=== PATIENT | female | born 1980 | race Caucasian/White ===

== ENCOUNTER 2017-02-10 09:36 | Emergency (ER) | payer OTHER ==
[2017-02-10 10:50] LABS: ABSOLUTE BASOPHILS # (AUTO) 0.1 10^3/uL (0.0-0.2); ABSOLUTE EOSINOPHILS # (AUTO) 0.2 10^3/uL (0.0-0.6); ABSOLUTE LYMPHOCYTES (AUTO) 2.3 10^3/uL (0.5-4.7); ABSOLUTE MONOCYTES (AUTO) 0.7 10^3/uL (0.1-1.4); ABSOLUTE NEUT (AUTO) 9.1 10^3/uL (1.7-8.2); BASOPHILS % (AUTO) 0.4 % (0-2); EOSINOPHILS % (AUTO) 1.9 % (0-6); HEMATOCRIT 37.5 % (36.0-47.0); HEMOGLOBIN 12.5 g/dL (12.0-15.5); LYMPHOCYTES % (AUTO) 18.9 % (13-45); MEAN CORPUSCULAR HEMOGLOBIN 28.7 pg (27.0-33.4); MEAN CORPUSCULAR HGB CONC 33.3 g/dL (32.0-36.0); MEAN CORPUSCULAR VOLUME 86 fl (80-97); MONOCYTES % (AUTO) 5.6 % (3-13); RED BLOOD COUNT 4.35 10^6/uL (3.72-5.28); RED CELL DISTRIBUTION WIDTH 14.9 % (11.5-14.0); SEGMENTED NEUTROPHILS % (AUTO) 73.2 % (42-78); WHITE BLOOD COUNT 12.4 10^3/uL (4.0-10.5)
[2017-02-10 11:06] LABS: APPEARANCE,URINE SLIGHTLY-CLOUDY; BILIRUBIN,URINE NEGATIVE (NEGATIVE); GLUCOSE, URINE 50 mg/dL (NEGATIVE); KETONES,URINE NEGATIVE (NEGATIVE); LEUKOCYTE ESTERASE,URINE NEGATIVE (NEGATIVE); NITRITE,URINE NEGATIVE (NEGATIVE); PROTEIN,URINE 30 mg/dL (NEGATIVE); URINE SPECIFIC GRAVITY 1.026; UROBILINOGEN,URINE NEGATIVE mg/dL (<2.0)
[2017-02-10 11:09] LABS: ALANINE AMINOTRANSFERASE 22 U/L (9-52); ALBUMIN 3.5 g/dL (3.5-5.0); ALKALINE PHOSPHATASE 90 U/L (38-126); ANION GAP 10 (5-19); ASPARTATE AMINO TRANSFERASE 20 U/L (14-36); BILIRUBIN,DIRECT 0.2 mg/dL (0.0-0.4); BILIRUBIN,TOTAL 0.9 mg/dL (0.2-1.3); BLOOD UREA NITROGEN 8 mg/dL (7-20); CALCIUM 8.9 mg/dL (8.4-10.2); CARBON DIOXIDE 21 mmol/L (22-30); CHLORIDE 103 mmol/L (98-107); CREATININE RESULT 0.54 mg/dL (0.52-1.25); GLUCOSE 87 mg/dL (75-110); LIPASE 120.2 U/L (23-300); POTASSIUM 4.3 mmol/L (3.6-5.0); SODIUM 133.7 mmol/L (137-145); TOTAL PROTEIN 6.5 g/dL (6.3-8.2)
[2017-02-10] MEDS ORDERED: METOCLOPRAMIDE HCL 10 MG TABLET PO ONE (12:02)
--- NOTE | 2017-02-10 12:14 | ER Document Report ---
ED General - General Chief Complaint: Dizziness Stated Complaint: NAUSEA/DIZZINESS Time Seen by Provider: 02/10/17 09:51 Mode of Arrival: Medic Information source: Patient Notes: 36-year-old female 34 weeks presents with complaints of nausea vomiting dizziness. Patient notes that she has had these symptoms for approximately a week and half, was seen by her [employer] but they would not give her any nausea medication. Patient notes she vomits approximately 2-3 times a day. Denies any fevers or chills notes she did vomit one time today. TRAVEL OUTSIDE OF THE [place] IN LAST 30 DAYS: No - HPI Onset: Last week Onset/Duration: Intermittent Quality of pain: No pain Severity: Mild Pain Level: Denies Associated symptoms: Nausea, Vomiting Exacerbated by: Denies Relieved by: Denies Similar symptoms previously: Yes Recently seen / treated by doctor: Yes - Related Data Allergies/Adverse Reactions: Penicillins Allergy (Severe, Verified 02/10/17 09:45) Anaphylaxis Home Medications: Current Home Medications Aspirin [Aspirin 81 mg Chewable Tablet] 81 mg PO DAILY 02/10/17 [History] Docusate Sodium [Colace 100 mg Capsule] 100 mg PO DAILY 02/10/17 [History] Enoxaparin Sodium [Lovenox] 30 mg SQ DAILY 02/10/17 [History] Escitalopram Oxalate [Lexapro 10 mg Tablet] 20 mg PO DAILY 02/10/17 [History] Past Medical History - Social History Smoking Status: Never Smoker Cigarette use (# per day): No Chew tobacco use (# tins/day): No Smoking Education Provided: No Frequency of alcohol use: None Drug Abuse: None Family History: Reviewed & Not Pertinent - No personal or family history of DVT , PE or hypercoagulable states., CAD Patient has suicidal ideation: No Patient has homicidal ideation: No - Past Medical History Cardiac Medical History: Reports: Hx Pulmonary Embolism Neurological Medical History: Reports: Hx Migraine Renal/ Medical History: Denies: Hx Peritoneal Dialysis GI Medical History: Reports: Hx Gastroesophageal Reflux Disease Psychiatric Medical History: Reports: Hx Anxiety, Hx Depression Past Surgical History: Reports: Hx Section, Hx Orthopedic Surgery - back, right wrist, Hx Tonsillectomy - Immunizations Hx Diphtheria, Pertussis, Tetanus Vaccination: Yes Review of Systems - Review of Systems Notes: REVIEW OF SYSTEMS: CONSTITUTIONAL : Denies fever, chills, or sweats. Denies recent illness. EENT: Denies eye, ear, throat, or mouth pain or symptoms. Denies nasal or sinus congestion or discharge. Denies throat, tongue, or mouth swelling or difficulty swallowing. CARDIOVASCULAR: Denies chest pain. Denies palpitations or racing or irregular heart beat. Denies ankle edema. RESPIRATORY: Denies cough, cold, or chest congestion. Denies shortness of breath, difficulty breathing, or wheezing. GASTROINTESTINAL: D admits to nausea vomiting GENITOURINARY: Denies difficulty urinating, painful urination, burning, frequency, blood in urine, or discharge. FEMALE GENITOURINARY: Denies vaginal bleeding, heavy or abnormal periods, irregular periods. Denies vaginal discharge or odor. MUSCULOSKELETAL: Denies back or neck pain or stiffness. Denies joint pain or swelling. SKIN: Denies rash, lesions or sores. HEMATOLOGIC : Denies easy bruising or bleeding. LYMPHATIC: Denies swollen, enlarged glands. NEUROLOGICAL: Admits to dizziness PSYCHIATRIC: Denies anxiety or stress. Denies depression, suicidal ideation, or homicidal ideation. ALL OTHER SYSTEMS REVIEWED AND NEGATIVE. PHYSICAL EXAMINATION: GENERAL: Well-appearing, well-nourished and in no acute distress. HEAD: Atraumatic, normocephalic. EYES: Pupils equal round and reactive to light, extraocular movements intact, conjunctiva are normal. ENT: Nares patent, oropharynx clear without exudates. Moist mucous membranes. NECK: Normal range of motion, supple without lymphadenopathy LUNGS: Breath sounds clear to auscultation bilaterally and equal. No wheezes rales or rhonchi. HEART: Regular rate and rhythm without murmurs ABDOMEN: Gravid abdomen Female : deferred Musculoskeletal: Normal range of motion, no pitting or edema. No cyanosis. NEUROLOGICAL: Cranial nerves grossly intact. Normal speech, normal gait. Normal sensory, motor exams PSYCH: Normal mood, normal affect. SKIN: Warm, Dry, normal turgor, no rashes or lesions noted. Dictation was performed using [employer] voice recognition software Physical Exam - Vital signs Vitals: Temp Pulse Resp BP Pulse Ox 98 F 99 16 122/91 H 99 02/10/17 09:37 02/10/17 09:37 02/10/17 09:37 02/10/17 09:37 02/10/17 09:37 Course - Re-evaluation Re-evalutation: 02/10/17 12:11 Patient is noted to have mild hyponatremia otherwise she looks extremely well is in no distress, she will be given Reglan and is otherwise stable for discharge. Mild white count elevation is consistent with the . She is not having any abdominal pain has not had any vaginal bleeding or any other life-threatening concerns After performing a Medical Screening Examination, I estimate there is LOW risk for ACUTE APPENDICITIS, BOWEL OBSTRUCTION, ACUTE CHOLECYSTITIS, PERFORATED DIVERTICULITIS, INCARCERATED HERNIA, PANCREATITIS, PELVIC INFLAMMATORY DISEASE, PERFORATED ULCER, or TUBO-OVARIAN ABSCESS, thus I consider the discharge disposition reasonable. Also, there is no evidence or peritonitis, sepsis, or toxicity. I have reevaluated this patient multiple times and no significant life threatening changes are noted. The patient and I have discussed the diagnosis and risks, and we agree with discharging home with close follow-up with the understanding that symptoms and presentations can change. We also discussed returning to the Emergency Department immediately if new or worsening symptoms occur. We have discussed the symptoms which are most concerning (e.g., bloody stool, fever, changing or worsening pain, vomiting) that necessitate immediate return. - Vital Signs Vital signs: Temp Pulse Resp BP Pulse Ox 98 F 99 16 122/91 H 99 02/10/17 09:37 02/10/17 09:37 02/10/17 09:37 02/10/17 09:37 02/10/17 09:37 - Laboratory Result Diagrams: 02/10/17 10:40 02/10/17 10:40 Laboratory results interpreted by me: 02/10/17 02/10/17 02/10/17 10:40 10:40 10:40 WBC 12.4 H RDW 14.9 H Absolute Neutrophils 9.1 H Sodium 133.7 L Carbon Dioxide 21 L Urine Protein 30 H Urine Glucose (UA) 50 H Urine HCG, Qual POSITIVE H Discharge - Discharge Clinical Impression: Nausea/vomiting in , Dizziness Condition: Stable Disposition: HOME, SELF-CARE Instructions: Dizziness ([facility]) Prescriptions: Metoclopramide HCl [Reglan 10 mg Tablet] 1 - 2 tab PO Q6 #25 tablet Referrals: GOYO HYATT FNP [Primary Care Provider] - Follow up tomorrow
[2017-02-10 12:35] VITALS: BP 131/79
== END 2017-02-10 12:30 | disposition home or self-care (01) ==
LOC: ER 09:36
DX: O21.1 Hyperemesis gravidarum with metabolic disturbance (principal); O26.893 Other specified pregnancy related conditions, third trimester; R42 Dizziness and giddiness; Z3A.34 34 weeks gestation of pregnancy; Z37.0 Single live birth; Z88.0 Allergy status to penicillin
CPT/HCPCS: 36415; 80053; 81001; 81025; 83690; 84702; 85025; 99284

== ENCOUNTER 2017-03-06 09:15 | Emergency (ER) | payer OTHER ==
--- NOTE | 2017-03-06 09:37 | ER Document Report ---
ED General - General Chief Complaint: Leg Pain Stated Complaint: LEG PAIN Time Seen by Provider: 03/06/17 09:31 Mode of Arrival: Wheelchair Information source: Patient Notes: 36 yr old female who is 37 weeks presents with complaints of right lower extremity edema pain of about 1 week duration. Pt denies any chest pain sob, pt denies any abd pain or vaginal bleeding. Pt has had a hx of PE, is currently on lovenox 40 mb bid since started TRAVEL OUTSIDE OF THE [place] IN LAST 30 DAYS: No - HPI Onset: Last week Onset/Duration: Persistent Quality of pain: Cramping Severity: Mild Pain Level: 1 Associated symptoms: Leg swelling Exacerbated by: Denies Relieved by: Denies Similar symptoms previously: No Recently seen / treated by doctor: Yes - Related Data Allergies/Adverse Reactions: Penicillins Allergy (Severe, Verified 03/06/17 09:28) Anaphylaxis Home Medications: Current Home Medications Pnv No.122/Iron/Folic Acid [ Multi Tablet] 1 tab PO DAILY 03/06/17 [ History] Past Medical History - Social History Smoking Status: Never Smoker Cigarette use (# per day): No Chew tobacco use (# tins/day): No Smoking Education Provided: No Frequency of alcohol use: None Drug Abuse: None Family History: Reviewed & Not Pertinent - No personal or family history of DVT , PE or hypercoagulable states., CAD Patient has suicidal ideation: No Patient has homicidal ideation: No - Past Medical History Cardiac Medical History: Reports: Hx Pulmonary Embolism Neurological Medical History: Reports: Hx Migraine Renal/ Medical History: Denies: Hx Peritoneal Dialysis GI Medical History: Reports: Hx Gastroesophageal Reflux Disease Psychiatric Medical History: Reports: Hx Anxiety, Hx Depression Past Surgical History: Reports: Hx Section, Hx Orthopedic Surgery - back, right wrist, Hx Tonsillectomy - Immunizations Hx Diphtheria, Pertussis, Tetanus Vaccination: Yes Review of Systems - Review of Systems Notes: REVIEW OF SYSTEMS: CONSTITUTIONAL : Denies fever, chills, or sweats. Denies recent illness. EENT: Denies eye, ear, throat, or mouth pain or symptoms. Denies nasal or sinus congestion or discharge. Denies throat, tongue, or mouth swelling or difficulty swallowing. CARDIOVASCULAR: Denies chest pain. Denies palpitations or racing or irregular heart beat. Denies ankle edema. RESPIRATORY: Denies cough, cold, or chest congestion. Denies shortness of breath, difficulty breathing, or wheezing. GASTROINTESTINAL: Denies abdominal pain or distention. Denies nausea, vomiting , or diarrhea. Denies blood in vomitus, stools, or per rectum. Denies black, tarry stools. Denies constipation. GENITOURINARY: Denies difficulty urinating, painful urination, burning, frequency, blood in urine, or discharge. FEMALE GENITOURINARY: Denies vaginal bleeding, heavy or abnormal periods, irregular periods. Denies vaginal discharge or odor. MUSCULOSKELETAL: right lower extremity swelling SKIN: Denies rash, lesions or sores. HEMATOLOGIC : Denies easy bruising or bleeding. LYMPHATIC: Denies swollen, enlarged glands. NEUROLOGICAL: Denies confusion or altered mental status. Denies passing out or loss of consciousness. Denies dizziness or lightheadedness. Denies headache. Denies weakness or paralysis or loss of use of either side. Denies problems with gait or speech. Denies sensory loss, numbness, or tingling. Denies seizures. PSYCHIATRIC: Denies anxiety or stress. Denies depression, suicidal ideation, or homicidal ideation. ALL OTHER SYSTEMS REVIEWED AND NEGATIVE. PHYSICAL EXAMINATION: GENERAL: Well-appearing, well-nourished and in no acute distress. HEAD: Atraumatic, normocephalic. EYES: Pupils equal round and reactive to light, extraocular movements intact, conjunctiva are normal. ENT: Nares patent, oropharynx clear without exudates. Moist mucous membranes. NECK: Normal range of motion, supple without lymphadenopathy LUNGS: Breath sounds clear to auscultation bilaterally and equal. No wheezes rales or rhonchi. HEART: Regular rate and rhythm without murmurs ABDOMEN: Soft, nontender, nondistended abdomen. No guarding, no rebound. No masses appreciated. Female : deferred Musculoskeletal: mild tenderness on the RLE NEUROLOGICAL: Cranial nerves grossly intact. Normal speech, normal gait. Normal sensory, motor exams PSYCH: Normal mood, normal affect. SKIN: Warm, Dry, normal turgor, no rashes or lesions noted. Dictation was performed using [employer] voice recognition software Physical Exam - Vital signs Vitals: Temp Pulse Resp Pulse Ox 98.5 F 103 H 20 98 03/06/17 09:26 03/06/17 09:26 03/06/17 09:26 03/06/17 09:26 Course - Re-evaluation Re-evalutation: 03/06/17 09:40 U/s pending, no known cause of previous PE. 03/06/17 10:29 Ultrasound is negative patient's otherwise stable for discharge will have her follow-up with her [employer] for further care. Patient has been instructed to return immediately if there is any worsening symptoms shortness of breath chest pain or any other concerns After performing a Medical Screening Examination, I estimate there is LOW risk for RUPTURED ESOPHAGUS, PNEUMOTHORAX, PULMONARY EMBOLISM, ACUTE CORONARY SYNDROME, OR THORACIC AORTIC DISSECTION, thus I consider the discharge disposition reasonable. I have reevaluated this patient multiple times and no significant life threatening changes are noted. The patient and I have discussed the diagnosis and risks, and we agree with discharging home with close follow-up. We also discussed returning to the Emergency Department immediately if new or worsening symptoms occur. We have discussed the symptoms which are most concerning (e.g., bloody sputum, worsening pain or shortness of breath) that necessitate immediate return. - Vital Signs Vital signs: Temp Pulse Resp BP Pulse Ox 98.5 F 103 H 20 98 03/06/17 09:26 03/06/17 09:26 03/06/17 09:26 03/06/17 09:26 - Diagnostic Test Radiology reviewed: Image reviewed, Reports reviewed - no acute abormality Discharge - Discharge Clinical Impression: Leg edema, right Leg pain Qualifiers: Laterality: right Qualified Code(s): M79.604 - Pain in right leg Condition: Stable Disposition: HOME, SELF-CARE Instructions: Possible Evolving Leg DVT ([facility]) Additional Instructions: Please follow-up with your primary care physician for reevaluation or return immediately if there are any other concerns
[2017-03-06 10:47] VITALS: BP 135/84
--- NOTE | 2017-03-06 11:41 | RADIOLOGY REPORT (SQ) ---
EXAM DESCRIPTION: VENOUS UNILATERAL LOWER/ right leg COMPLETED DATE/TIME: 03/06/2017 11:15 am REASON FOR STUDY: RLE pain COMPARISON: 06/25/2016 TECHNIQUE: Dynamic and static rivera scale and color images acquired of the right leg venous system. S elected spectral images acquired with additional compression and augmentation maneuvers. The contrala teral common femoral vein and saphenofemoral junction were also imaged. Images stored on PACS. LIMITATIONS: None. FINDINGS: COMMON FEMORAL: Normal phasicity, compression and augmentation. No visualized echogenic ma terial on rivera scale. No defects on color images. FEMORAL: Normal compression and augmentation. No visualized echogenic material on rivera scale. No defe cts on color images. POPLITEAL: Normal compression, augmentation. No visualized echogenic material on rivera scale. No defec ts on color images. CALF VESSELS: Normal compression, augmentation. No visualized echogenic material on rivera scale. No de fects on color images. GSV and SSV: Normal compression, augmentation. No visualized echogenic material on rivera scale. No def ects on color images. ANY DEEP VENOUS INSUFFICIENCY: Not evaluated. ANY EVIDENCE OF POPLITEAL CYST: No. OTHER: No other significant finding. CONTRALATERAL COMMON FEMORAL VEIN AND SAPHENOFEMORAL JUNCTION: Normal phasicity, compression and augmentation. No visualized echogenic material on rivera scale. No de fects on color images. IMPRESSION: No ultrasound evidence for DVT of the right leg. COMMENT: Report called to Dr Giordano at the time study TECHNICAL DOCUMENTATION: JOB ID: [id number] [employer]- All Rights Reserved
== END 2017-03-06 10:47 | disposition home or self-care (01) ==
LOC: ER 09:15
DX: O12.03 Gestational edema, third trimester (principal); M79.604 Pain in right leg; Z3A.37 37 weeks gestation of pregnancy; Z88.0 Allergy status to penicillin; Z86.711 Personal history of pulmonary embolism; Z79.02 Long term (current) use of antithrombotics/antiplatelets
CPT/HCPCS: 93971; 99284

== ENCOUNTER 2017-09-12 16:45 | Emergency (ER) | payer MEDICAID, OTHER ==
[2017-09-12] MEDS ORDERED: ONDANSETRON HCL INJ/PF 4 MG/2 ML SDV IV ONE (17:55)
--- NOTE | 2017-09-12 17:58 | ER Document Report ---
ED Medical Screen (RME) - General Chief Complaint: Nausea/Vomiting Stated Complaint: VOMITING Time Seen by Provider: 09/12/17 17:51 Notes: 36 yo female c/o n/v since 100 this morning. + lower abd pain. denies urinary symptoms, denies vaginal symptoms, TRAVEL OUTSIDE OF THE [place] IN LAST 30 DAYS: No - Related Data Allergies/Adverse Reactions: Penicillins Allergy (Severe, Verified 09/12/17 16:49) Anaphylaxis Past Medical History - Social History Frequency of alcohol use: None Drug Abuse: None - Past Medical History Cardiac Medical History: Reports: Hx Pulmonary Embolism Neurological Medical History: Reports: Hx Migraine Renal/ Medical History: Denies: Hx Peritoneal Dialysis GI Medical History: Reports: Hx Gastroesophageal Reflux Disease Psychiatric Medical History: Reports: Hx Anxiety, Hx Depression Past Surgical History: Reports: Hx Section, Hx Orthopedic Surgery - back, right wrist, Hx Tonsillectomy - Immunizations Hx Diphtheria, Pertussis, Tetanus Vaccination: Yes Physical Exam - Vital signs Vitals: Temp Pulse Resp BP Pulse Ox 98.2 F 115 H 20 129/86 H 98 09/12/17 16:59 09/12/17 16:59 09/12/17 16:59 09/12/17 16:59 09/12/17 16:59 Course - Vital Signs Vital signs: Temp Pulse Resp BP Pulse Ox 98.2 F 115 H 20 129/86 H 98 09/12/17 16:59 09/12/17 16:59 09/12/17 16:59 09/12/17 16:59 09/12/17 16:59
[2017-09-12] MEDS: NORMAL SALINE 1000 ML 1,000 ML IV PRN ×2 (19:00→20:36)
[2017-09-12 19:08] LABS: HEMATOCRIT 39.9 % (36.0-47.0); MEAN CORPUSCULAR HEMOGLOBIN 25.5 pg (27.0-33.4); MEAN CORPUSCULAR HGB CONC 32.6 g/dL (32.0-36.0); MEAN CORPUSCULAR VOLUME 78 fl (80-97); PLATELET COUNT 263 10^3/uL (150-450); RED CELL DISTRIBUTION WIDTH 14.7 % (11.5-14.0); WHITE BLOOD COUNT 11.1 10^3/uL (4.0-10.5)
[2017-09-12 19:14] LABS: ALANINE AMINOTRANSFERASE 24 U/L (9-52); ALBUMIN 4.6 g/dL (3.5-5.0); ALKALINE PHOSPHATASE 84 U/L (38-126); ANION GAP 15 (5-19); ASPARTATE AMINO TRANSFERASE 20 U/L (14-36); BILIRUBIN,DIRECT 0.1 mg/dL (0.0-0.4); BILIRUBIN,TOTAL 1.8 mg/dL (0.2-1.3); BLOOD UREA NITROGEN 19 mg/dL (7-20); CALCIUM 9.2 mg/dL (8.4-10.2); CARBON DIOXIDE 22 mmol/L (22-30); CHLORIDE 103 mmol/L (98-107); GLUCOSE 146 mg/dL (75-110); LIPASE 83.5 U/L (23-300); POTASSIUM 4.2 mmol/L (3.6-5.0); SODIUM 139.9 mmol/L (137-145); TOTAL PROTEIN 7.2 g/dL (6.3-8.2)
[2017-09-12 19:39] LABS: ABSOLUTE LYMPHOCYTES# (MANUAL) 0.6 10^3/uL (0.5-4.7); ABSOLUTE MONOCYTES # (MANUAL) 0.1 10^3/uL (0.1-1.4); ABSOLUTE NEUTROPHILS# (MANUAL) 10.4 10^3/uL (1.7-8.2); BAND NEUTROPHILS % (MANUAL) 3 % (3-5); BASOPHILS % (MANUAL) 0 % (0-2); EOSINOPHILS % (MANUAL) 0 % (0-6); LYMPHOCYTES % (MANUAL) 5 % (13-45); MONOCYTES % (MANUAL) 1 % (3-13); SEGMENTED NEUTROPHILS % (MAN) 91 % (42-78); TOTAL CELLS COUNTED 100
[2017-09-12 19:40] LABS: ANISOCYTOSIS SLIGHT; PLATELET COMMENT ADEQUATE
--- NOTE | 2017-09-12 19:43 | ER Document Report ---
ED General - General Mode of Arrival: Ambulatory Information source: Patient TRAVEL OUTSIDE OF THE [place] IN LAST 30 DAYS: No <CESAR SMALL - Last Filed: 09/13/17 00:36> <AVELINACAROLYN Coffey - Last Filed: 10/05/17 17:06> - General Chief Complaint: Nausea/Vomiting Stated Complaint: VOMITING Time Seen by Provider: 09/12/17 17:51 Notes: Patient is a 36 year old female presenting to the emergency department complaining of sudden onset of nausea and vomiting onset today around 1200. Patient states she was at work when she began to feel nauseous which progressively worsened. Patient states she has had 12 episodes of vomiting today. Patient also complains decreased urination and diffuse abdominal pain. At bedside patient states she feels better after receiving Zofran. Patient denies any cough, congestion, fever, illness, chest pain, shortness of breath, blurry vision, or sick contacts. (CESAR SMALL) - Related Data Allergies/Adverse Reactions: Penicillins Allergy (Severe, Verified 09/12/17 16:49) Anaphylaxis Past Medical History - General Information source: Patient - Social History Smoking Status: Never Smoker Frequency of alcohol use: None Drug Abuse: None Family History: Reviewed & Not Pertinent - No personal or family history of DVT , PE or hypercoagulable states., CAD Patient has suicidal ideation: No Patient has homicidal ideation: No - Past Medical History Cardiac Medical History: Reports: Hx Pulmonary Embolism Neurological Medical History: Reports: Hx Migraine GI Medical History: Reports: Hx Gastroesophageal Reflux Disease Psychiatric Medical History: Reports: Hx Anxiety, Hx Depression Past Surgical History: Reports: Hx Section, Hx Orthopedic Surgery - back, right wrist, Hx Tonsillectomy - Immunizations Hx Diphtheria, Pertussis, Tetanus Vaccination: Yes <CESAR SMALL - Last Filed: 09/13/17 00:36> Review of Systems - Review of Systems Constitutional: No symptoms reported EENT: No symptoms reported Cardiovascular: No symptoms reported Respiratory: No symptoms reported Gastrointestinal: See HPI, Abdominal pain, Nausea, Vomiting Genitourinary: See HPI Female Genitourinary: No symptoms reported Musculoskeletal: No symptoms reported Skin: No symptoms reported Hematologic/Lymphatic: No symptoms reported Neurological/Psychological: No symptoms reported -: Yes All other systems reviewed and negative <CESAR SMALL - Last Filed: 09/13/17 00:36> Physical Exam <CESAR SMALL - Last Filed: 09/13/17 00:36> <CAROLYN QUAN - Last Filed: 10/05/17 17:06> - Vital signs Vitals: Temp Pulse Resp BP Pulse Ox 98.2 F 115 H 20 129/86 H 98 09/12/17 16:59 09/12/17 16:59 09/12/17 16:59 09/12/17 16:59 09/12/17 16:59 - Notes Notes: GENERAL: Alert, interacts well. No acute distress. HEAD: Normocephalic, atraumatic. EYES: Pupils equal, round, and reactive to light. Extraocular movements intact. ENT: Oral mucosa moist, tongue midline. NECK: Full range of motion. Supple. Trachea midline. LUNGS: Clear to auscultation bilaterally, no wheezes, rales, or rhonchi. No respiratory distress. HEART: Regular rate and rhythm. No murmurs, gallops, or rubs. ABDOMEN: Soft, Diffuse abdominal tenderness to palpation, worse in LLQ none in RUQ. Non-distended. Bowel sounds present in all 4 quadrants. EXTREMITIES: Moves all 4 extremities spontaneously. NEUROLOGICAL: Alert and oriented x3. Normal speech. PSYCH: Normal affect, normal mood. SKIN: Warm, dry, normal turgor. No rashes or lesions noted. (CESAR SMALL) Course - Laboratory Result Diagrams: 09/12/17 18:52 09/12/17 18:52 <CESAR SMALL - Last Filed: 09/13/17 00:36> - Laboratory Result Diagrams: 09/12/17 18:52 09/12/17 18:52 <CAROLYN QUAN - Last Filed: 10/05/17 17:06> - Re-evaluation Re-evalutation: 09/12/17 20:29 Patient symptoms improved with Zofran patient has not had any vomitus while in the emergency department. Patient be discharged with Zofran return precautions 09/12/17 21:09 Patient's labs within normal limits are nonsignificant discharged at this time with Zofran (CAROLYN QUAN) - Vital Signs Vital signs: Temp Pulse Resp BP Pulse Ox 98.1 F 99 20 127/75 H 97 09/12/17 21:31 09/12/17 21:31 09/12/17 21:31 09/12/17 21:31 09/12/17 21:31 - Laboratory Laboratory results interpreted by me: 09/12/17 09/12/17 09/12/17 18:52 18:52 20:15 WBC 11.1 H MCV 78 L MCH 25.5 L RDW 14.7 H Seg Neuts % (Manual) 91 H Lymphocytes % (Manual) 5 L Monocytes % (Manual) 1 L Abs Neuts (Manual) 10.4 H Glucose 146 H Total Bilirubin 1.8 H Urine Protein 30 H Urine Glucose (UA) 50 H Urine Ketones 20 H Discharge <CESAR SMALL - Last Filed: 09/13/17 00:36> <CAROLYN QUAN - Last Filed: 10/05/17 17:06> - Discharge Clinical Impression: Nausea and vomiting Condition: Stable Disposition: HOME, SELF-CARE Additional Instructions: Please return to the emergency department if your to have new or worsening symptoms. Prescriptions: Ondansetron [Zofran Odt 4 mg Tablet (6 Tab/ER Disp)] 4 tab PO Q4HP PRN #6 dspk PRN Reason: Forms: Return to Work Scribe Attestation: 10/05/17 17:06 I personally performed the services described documentation, reviewed and edited the documentation which was dictated to describe my presence, and it accurately records my words and actions. (CAROLYN QUAN) Scribe Documentation - Scribe Written by Coletteibe:: Marielos Hernandez, 09/12/2017 19:43 acting as scribe for :: Avelina <CESAR SMALL - Last Filed: 09/13/17 00:36>
[2017-09-12] MEDS ORDERED: NORMAL SALINE 1000 ML 1,000 ML IV ONE (20:29)
[2017-09-12 20:36] LABS: APPEARANCE,URINE SLIGHTLY-CLOUDY; BILIRUBIN,URINE NEGATIVE (NEGATIVE); COLOR,URINE YELLOW; GLUCOSE, URINE 50 mg/dL (NEGATIVE); KETONES,URINE 20 mg/dL (NEGATIVE); LEUKOCYTE ESTERASE,URINE NEGATIVE (NEGATIVE); NITRITE,URINE NEGATIVE (NEGATIVE); PROTEIN,URINE 30 mg/dL (NEGATIVE); URINE SPECIFIC GRAVITY 1.031; UROBILINOGEN,URINE NEGATIVE mg/dL (<2.0)
[2017-09-12] MEDS ORDERED: ONDANSETRON 4 MG TAB.RAPDIS PO ONE (21:12)
[2017-09-12] MEDS ORDERED: ONDANSETRON ODT 4 MG TAB (6 TAB/ER DISP) PO PRN (21:36)
[2017-09-12 21:58] VITALS: BP 127/75
== END 2017-09-12 21:35 | disposition home or self-care (01) ==
LOC: ER 16:45
DX: R11.2 Nausea with vomiting, unspecified (principal); R10.84 Generalized abdominal pain; R39.9 Unspecified symptoms and signs involving the genitourinary system; Z87.892 Personal history of anaphylaxis; Z88.0 Allergy status to penicillin; Z87.19 Personal history of other diseases of the digestive system
CPT/HCPCS: 99284; 96361; 96374; 36415; 83690; 84703; 85025; 80053; 81001; S0119; J2405; J7030

== ENCOUNTER 2018-10-01 08:20 | Emergency (ER) | payer OTHER ==
[2018-10-01 08:25] VITALS: BP 148/89
[2018-10-01] MEDS ORDERED: KETOROLAC TROMETHAMINE 60 MG/2 ML SDV IM ONE (08:48)
[2018-10-01] MEDS ORDERED: DIPHENHYDRAMINE HCL 25 MG CAPSULE PO ONE (08:48)
[2018-10-01] MEDS ORDERED: METOCLOPRAMIDE HCL 10 MG TABLET PO ONE (08:48)
--- NOTE | 2018-10-01 08:56 | ER Document Report ---
ED Medical Screen (RME) - General Chief Complaint: Headache Stated Complaint: HEADACHE Time Seen by Provider: 10/01/18 08:41 Primary Care Provider: AKASH POOL DO [Primary Care Provider] - Follow up as needed Mode of Arrival: Ambulatory Information source: Patient Notes: Patient presents emergency department with complaints of the worst migraine she has had in the past 10 years. Reports history of migraines since she was a child. Reports this 1 started on Sunday feels like her typical migraine except it has not gone away and not dulled in pain. She has taken 2 of her rizatriptan- medication yesterday for migraine. Reports she has gone to sleep in a dark room and the pain has not dulled. She reports facial pain that radiates to the top of her head to the back of her skull, pain behind her eyes, also reports her neck is a little sore. Denies fever vomiting diarrhea. Complains of some nausea. Denies vision issues. Reports sensitive to light smell and noise. Denies trauma. Patient is talking in full comprehensive sentences. Alert and oriented. I have greeted and performed a rapid initial assessment of this patient. A comprehensive ED assessment and evaluation of the patient, analysis of test results and completion of the medical decision making process will be conducted by additional ED providers. TRAVEL OUTSIDE OF THE [place] IN LAST 30 DAYS: No - Related Data Allergies/Adverse Reactions: Penicillins Allergy (Severe, Verified 10/01/18 08:21) Anaphylaxis Past Medical History - Past Medical History Cardiac Medical History: Reports: Hx Pulmonary Embolism Neurological Medical History: Reports: Hx Migraine Renal/ Medical History: Denies: Hx Peritoneal Dialysis GI Medical History: Reports: Hx Gastroesophageal Reflux Disease Psychiatric Medical History: Reports: Hx Anxiety, Hx Depression Past Surgical History: Reports: Hx Section, Hx Myringotomy, Hx Orthop edic Surgery - back, right wrist, Hx Tonsillectomy - Immunizations Immunizations up to date: Yes Hx Diphtheria, Pertussis, Tetanus Vaccination: Yes Physical Exam - Vital signs Vitals: Temp Pulse Resp BP Pulse Ox 99.2 F 80 16 148/89 H 98 10/01/18 08:24 10/01/18 08:24 10/01/18 08:24 10/01/18 08:24 10/01/18 08:24 Course - Vital Signs Vital signs: Temp Pulse Resp BP Pulse Ox 99.2 F 80 16 148/89 H 98 10/01/18 08:24 10/01/18 08:24 10/01/18 08:24 10/01/18 08:24 10/01/18 08:24 Doctor's Discharge - Discharge Referrals: AKASH POOL DO [Primary Care Provider] - Follow up as needed
[2018-10-01] MEDS ORDERED: PROCHLORPERAZINE EDISYLATE INJ 10 MG/2 ML VIAL IV ONE (09:07)
[2018-10-01] MEDS ORDERED: DIPHENHYDRAMINE HCL 50 MG/ML VIAL IV ONE (09:07)
[2018-10-01] MEDS ORDERED: KETOROLAC TROMETHAMINE INJ/PF 30 MG/1 ML SDV IV ONE (09:07)
[2018-10-01] MEDS ORDERED: NORMAL SALINE 1000 ML 1,000 ML IV ONE (09:07)
--- NOTE | 2018-10-01 15:13 | ER Document Report ---
Entered by CESAR SMALL SCRIBE 10/01/18 0915 Acting as scribe for:JAMES PERALES MD ED General - General Chief Complaint: Headache Stated Complaint: HEADACHE Time Seen by Provider: 10/01/18 08:41 Primary Care Provider: AKASH POOL DO [NO LOCAL MD] - Follow up as needed Mode of Arrival: Ambulatory Information source: Patient Notes: Patient is a 37 year old female presenting to the emergency department complaining of a headache onset yesterday. Patient states she has a history of migraines and states her current headache is the worst one she has had in 10 years. She describes the headache as throbbing, behind her eyes that is worse on the left side. She states the headache feels similar and is in the same location but different due to severity and lasting longer than normal. She states she took 2 rizatriptan yesterday with no relief. Patient also complains of associated photophobia and nausea. She denies vomiting, fevers or diarrhea. TRAVEL OUTSIDE OF THE [place] IN LAST 30 DAYS: No - Related Data Allergies/Adverse Reactions: Penicillins Allergy (Severe, Verified 10/01/18 08:21) Anaphylaxis Past Medical History - General Information source: Patient - Social History Smoking Status: Never Smoker Frequency of alcohol use: None Drug Abuse: None Family History: Reviewed & Not Pertinent - No personal or family history of DVT, PE or hypercoagulable states., CAD Patient has suicidal ideation: No Patient has homicidal ideation: No - Past Medical History Cardiac Medical History: Reports: Hx Pulmonary Embolism - Multiple 2014 Neurological Medical History: Reports: Hx Migraine GI Medical History: Reports: Hx Gastroesophageal Reflux Disease Musculoskeletal Medical History: Reports Hx Arthritis - RA Psychiatric Medical History: Reports: Hx Anxiety, Hx Depression Past Surgical History: Reports: Hx Section, Hx Myringotomy, Hx Orthopedic Surgery - back, right wrist, Hx Tonsillectomy - Immunizations Immunizations up to date: Yes Hx Diphtheria, Pertussis, Tetanus Vaccination: Yes Review of Systems - Review of Systems Constitutional: No symptoms reported EENT: No symptoms reported Cardiovascular: No symptoms reported Respiratory: No symptoms reported Gastrointestinal: See HPI, Nausea Genitourinary: No symptoms reported Female Genitourinary: No symptoms reported Musculoskeletal: See HPI Skin: No symptoms reported Hematologic/Lymphatic: No symptoms reported Neurological/Psychological: See HPI, Headaches -: Yes All other systems reviewed and negative Physical Exam - Vital signs Vitals: Temp Pulse Resp BP Pulse Ox 99.2 F 80 16 148/89 H 98 10/01/18 08:24 10/01/18 08:24 10/01/18 08:24 10/01/18 08:24 10/01/18 08:24 - Notes Notes: GENERAL: Alert, interacts well. No acute distress. HEAD: Normocephalic, atraumatic. Scalp muscles not tender to palpation. EYES: Pupils equal, round, and reactive to light. Extraocular movements intact. ENT: Oral mucosa moist, tongue midline. NECK: Full range of motion. Supple. Trachea midline. Posterior cervical muscles tender to palpation. LUNGS: Clear to auscultation bilaterally, no wheezes, rales, or rhonchi. No respiratory distress. HEART: Regular rate and rhythm. No murmurs, gallops, or rubs. ABDOMEN: Soft, non-tender. Non-distended. Bowel sounds present in all 4 quadrants. No guarding, rigidity, or rebound. EXTREMITIES: Moves all 4 extremities spontaneously. NEUROLOGICAL: Alert and oriented x3. Normal speech. PSYCH: Normal affect, normal mood. SKIN: Warm, dry, normal turgor. No rashes or lesions noted. Course - Re-evaluation Re-evalutation: 10/01/18 11:22 The patient reports that the IV blew before she can get the fluids, but did receive the medications before the IV infiltrated. She states that her headache is starting to improve at this point and she is comfortable. She reports she is never tried taking Benadryl with Compazine and Motrin at home to see if that would help these headaches when the treatments do not work. We will give her a prescription for Compazine and she can get the Benadryl and ibuprofen [id number] and try the same cocktail at home for her headaches. - Vital Signs Vital signs: Temp Pulse Resp BP Pulse Ox 99.2 F 80 16 148/89 H 98 10/01/18 08:24 10/01/18 08:24 10/01/18 08:24 10/01/18 08:24 10/01/18 08:24 Discharge - Discharge Clinical Impression: Migraine headache Qualifiers: Migraine type: unspecified Status migrainosus presence: with status migrainosus Intractability: not intractable Qualified Code(s): G43.901 - Migraine, unspecified, not intractable, with status migrainosus Condition: Stable Disposition: HOME, SELF-CARE Additional Instructions: Migraine Headache The physician feels that your symptoms are due to a migraine attack. Migraines often cause nausea and vomiting. The treatment of headaches varies with severity and cause of pain. Not all headaches need pain shots -- in fact, there is evidence that using narcotics for headaches may make them worse in the long run. The physician will determine the therapy that's in your best interest for this particular headache. Medications are available that may prevent migraines, or stop them as they first occur. If one medication is not helpful, try another. If migraines are frequent, be patient -- follow the doctor's recommendations. Call the physician if you are worsening, or if new symptoms arise. Continue your regular medications. Try to sleep in a cool, dark, quiet room. Try taking the Compazine with Benadryl 25-50 mg, and ibuprofen 800 mg the next time you develop a migraine headache and your rizatriptan does not work. Follow-up with your doctor if not improving. RETURN TO THE EMERGENCY ROOM IF ANY NEW OR WORSENING SYMPTOMS. Prescriptions: Prochlorperazine Maleate [Compazine 10 mg Tablet] 10 mg PO ASDIR PRN #12 tablet PRN Reason: Referrals: AKASH POOL DO [NO LOCAL MD] - Follow up as needed Scribe Attestation: 10/01/18 09:31 I personally performed the services described in the documentation, reviewed and edited the documentation which was dictated to the scribe in my presence, and it accurately records my words and actions. I personally performed the services described in the documentation, reviewed and edited the documentation which was dictated to the scribe in my presence, and it accurately records my words and actions.
== END 2018-10-01 12:13 | disposition home or self-care (01) ==
LOC: ER 08:20
DX: G43.901 Migraine, unspecified, not intractable, with status migrainosus (principal); H53.149 Visual discomfort, unspecified; R11.0 Nausea; Z79.899 Other long term (current) drug therapy
CPT/HCPCS: 99283; 96361; 96374; 96375; J1200; J1885; J0780; J7030

== ENCOUNTER → 2018-11-27 | Outpatient (CLI) | payer OTHER ==
--- NOTE | 2018-11-27 12:36 | RADIOLOGY REPORT (SQ) ---
EXAM DESCRIPTION: HAND LEFT 3 VIEWS COMPLETED DATE/TIME: 11/27/2018 12:01 pm REASON FOR STUDY: PAIN IN LEFT HAND M79.642 PAIN IN LEFT HAND COMPARISON: None. EXAM PARAMETERS: NUMBER OF VIEWS: Three views. TECHNIQUE: AP, lateral and oblique radiographic images acquired of the left hand. LIMITATIONS: None. FINDINGS: MINERALIZATION: Normal. BONES: No acute fracture dislocation. No discrete osseous lesions. Periosteal reaction about the pr oximal and mid phalanges of the 2nd through 5th digits, volar aspect. JOINTS: No effusions. No erosions. SOFT TISSUES: No focal soft tissue swelling. No radiopaque foreign body. OTHER: No other significant finding. IMPRESSION: 1. No evidence of acute fracture or dislocation. 2. Periosteal reaction about the proximal and mid phalanges of the 2nd through 5th digits, etiology uncertain but possibly related to prior trauma/ repetitive use or possibly inflammatory arthritis. TECHNICAL DOCUMENTATION: JOB ID: [id number] [employer]- All Rights Reserved Reading location - IP/workstation name: [email or web address]
== END ==
LOC: OD 11:33
PROVIDERS: ATTEND Nurse Practitioner Family
DX: M79.642 Pain in left hand (principal)

== ENCOUNTER 2019-01-03 09:50 | Emergency (ER) | payer OTHER ==
[2019-01-03 09:58] VITALS: BP 134/87
--- NOTE | 2019-01-03 11:06 | ER Document Report ---
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 She said that she was taking a bath on Sunday and when she poured some water on her had some got into her ear. She then went and sought ENT and they prescribed her drops for an otitis externa. She said over the last 36 hours the pain has gotten progressively worse to the point that it is excruciating, there is purulent discharge coming from the right ear, she is dizzy, cannot keep her head up or open her eyes, she is nauseated and has the shakes. She does have history of migraines but denies any migraine type headache at this time. She denies fevers, chills, vomiting or diarrhea, recent illness, cough, rhinorrhea, sore throat. No other complaints - CONSTITUTIONAL Constitutional: DENIES: Fever, Chills - EENT EENT: REPORTS: Ear Pain. DENIES: Sore Throat, Eye problems - NEURO Neurology: DENIES: Headache, Weakness, Vision blurred, Dizzinesss / Vertigo - CARDIOVASCULAR Cardiovascular: DENIES: Chest pain - RESPIRATORY Respiratory: DENIES: Trouble Breathing, Coughing - GASTROINTESTINAL Gastrointestinal: DENIES: Black / Bloody Stools - URINARY Urinary: DENIES: Dysuria, Urgency, Frequency - REPRODUCTIVE Reproductive: DENIES: : - MUSCULOSKELETAL Musculoskeletal: DENIES: Extremity pain Past Medical History - Social History Smoking Status: Unknown if Ever Smoked Chew tobacco use (# tins/day): No Frequency of alcohol use: None Drug Abuse: None Family History: Reviewed & Not Pertinent - No personal or family history of DVT, PE or hypercoagulable states., CAD Patient has suicidal ideation: No Patient has homicidal ideation: No - Past Medical History Cardiac Medical History: Reports: Hx Pulmonary Embolism - Multiple 2013 Neurological Medical History: Reports: Hx Migraine Renal/ Medical History: Denies: Hx Peritoneal Dialysis GI Medical History: Reports: Hx Gastroesophageal Reflux Disease Musculoskeletal Medical History: Reports Hx Arthritis - RA Psychiatric Medical History: Reports: Hx Anxiety, Hx Depression Past Surgical History: Reports: Hx Section, Hx Myringotomy, Hx Orthope dic Surgery - back, right wrist, Hx Tonsillectomy - Immunizations Immunizations up to date: Yes Hx Diphtheria, Pertussis, Tetanus Vaccination: Yes Vertical Provider Document - CONSTITUTIONAL Notes: PHYSICAL EXAMINATION: Reviewed vital signs and charting by RN GENERAL: Alert, interacts well. No acute distress. HEAD: Normocephalic, atraumatic. EYES: Pupils equal and round. Extraocular movements intact. ENT: Oral mucosa moist, unable to visualize the right tympanic membrane due to large amount of purulent discharge coming from the ear even after attempting to remove with curette NECK: Full range of motion. Trachea midline. EXTREMITIES: Moves all 4 extremities spontaneously. No edema, No cyanosis. PSYCH: Normal affect, normal mood. SKIN: Warm, dry, normal turgor. No rashes or lesions noted. - INFECTION CONTROL TRAVEL OUTSIDE OF THE [place] IN LAST 30 DAYS: No Course - Re-evaluation Re-evalutation: 01/03/19 11:[address] Norris, ENT on-call, who said he wants to see her in his office today. I will give patient the information and send her over now. Her vital signs are within normal limits and she is stable to transfer via POV as her is with her. - Vital Signs Vital signs: Temp Pulse Resp BP Pulse Ox 97.7 F 92 16 134/87 H 96 01/03/19 09:56 01/03/19 09:56 01/03/19 09:56 01/03/19 09:56 01/03/19 09:56 Discharge - Discharge Clinical Impression: Infection of right ear canal Condition: Stable Disposition: OTHER Additional Instructions: You were seen in the emergency department this morning for a right ear infection. I called our on-call ENT, Dr. Norris, and he want you to go over to his office immediately after here. He wants to look in your ear to decide if any further treatment is warranted. His information is below. Please go directly to Dr. Norris's office. Referrals: KATHY CARTER FNP-C [Primary Care Provider] - Follow up as needed MAXX NORRIS MD [ACTIVE STAFF] - Follow up as needed
== END 2019-01-03 11:29 | disposition other institution (70) ==
LOC: ER 09:50
DX: H60.91 Unspecified otitis externa, right ear (principal)
CPT/HCPCS: 99282

== ENCOUNTER 2019-01-11 10:31 | Emergency (ER) | payer OTHER ==
--- NOTE | 2019-01-11 10:49 | ER Document Report ---
ED Medical Screen (RME) - General Chief Complaint: Chest Pressure Stated Complaint: CHEST PAIN Time Seen by Provider: 01/11/19 10:42 Primary Care Provider: MAXX AMAYA MD [Primary Care Provider] - Follow up as needed Mode of Arrival: Ambulatory Information source: Patient Notes: Patient is a 38-year-old female presented to the emergency department with multiple complaints. Patient reports yesterday she had an episode of acid reflux. She states this morning she woke up with sudden onset nausea, numbness in her bilateral hands, diaphoresis and a full feeling across the center of her chest. She denies any actual chest pain. Patient reports she took 81 mg of aspirin at home prior to coming to the emergency department. She denies any known cardiac history but reports a strong family history of cardiac disease. Exam: Heart sounds S1-S2 present with no ectopy noted. Lung sounds clear and equal bilaterally. Skin warm and dry. I have greeted and performed a rapid initial assessment of this patient. A comprehensive ED assessment and evaluation of the patient, analysis of test results and completion of the medical decision making process will be conducted by additional ED providers. I have specifically instructed the patient or family members with the patient to immediately return to any nursing staff should anything change in the patient's condition or with their chief complaint. This medical record was dictated with voice recognizing software. There may be grammatical, syntax errors that are unintended. TRAVEL OUTSIDE OF THE [place] IN LAST 30 DAYS: No - Related Data Allergies/Adverse Reactions: Penicillins Allergy (Severe, Verified 01/11/19 10:31) Anaphylaxis Past Medical History - Past Medical History Cardiac Medical History: Reports: Hx Pulmonary Embolism - Multiple 2014 Neurological Medical History: Reports: Hx Migraine Renal/ Medical History: Denies: Hx Peritoneal Dialysis GI Medical History: Reports: Hx Gastroesophageal Reflux Disease Musculoskeltal Medical History: Reports Hx Arthritis - RA Psychiatric Medical History: Reports: Hx Anxiety, Hx Depression Past Surgical History: Reports: Hx Section, Hx Myringotomy, Hx Orthopedic Surgery - back, right wrist, Hx Tonsillectomy - Immunizations Immunizations up to date: Yes Hx Diphtheria, Pertussis, Tetanus Vaccination: Yes Physical Exam - Vital signs Vitals: Temp Pulse Resp BP Pulse Ox 97.6 F 85 18 149/93 H 99 01/11/19 10:41 01/11/19 10:41 01/11/19 10:41 01/11/19 10:41 01/11/19 10:41 Course - Vital Signs Vital signs: Temp Pulse Resp BP Pulse Ox 97.6 F 85 18 149/93 H 99 01/11/19 10:41 01/11/19 10:41 01/11/19 10:41 01/11/19 10:41 01/11/19 10:41 Doctor's Discharge - Discharge Referrals: MAXX AMAYA MD [Primary Care Provider] - Follow up as needed
[2019-01-11] MEDS ORDERED: ONDANSETRON HCL INJ/PF 4 MG/2 ML SDV IV ONE (11:20)
[2019-01-11 11:41] LABS: ABSOLUTE BASOPHILS # (AUTO) 0.1 10^3/uL (0.0-0.2); HEMATOCRIT 42.1 % (36.0-47.0); HEMOGLOBIN 14.3 g/dL (12.0-15.5); TOTAL CELLS COUNTED % (AUTO) 100 %
[2019-01-11 11:48] LABS: ABSOLUTE EOSINOPHILS # (AUTO) 0.1 10^3/uL (0.0-0.6); ABSOLUTE LYMPHOCYTES (AUTO) 1.9 10^3/uL (0.5-4.7); ABSOLUTE MONOCYTES (AUTO) 0.5 10^3/uL (0.1-1.4); ABSOLUTE NEUT (AUTO) 8.4 10^3/uL (1.7-8.2); BASOPHILS % (AUTO) 0.6 % (0-2); EOSINOPHILS % (AUTO) 0.6 % (0-6); LYMPHOCYTES % (AUTO) 17.3 % (13-45); MEAN CORPUSCULAR HEMOGLOBIN 28.8 pg (27.0-33.4); MEAN CORPUSCULAR VOLUME 85 fl (80-97); MONOCYTES % (AUTO) 4.2 % (3-13); PLATELET COUNT 326 10^3/uL (150-450); RED BLOOD COUNT 4.96 10^6/uL (3.72-5.28); RED CELL DISTRIBUTION WIDTH 13.7 % (11.5-14.0); SEGMENTED NEUTROPHILS % (AUTO) 77.3 % (42-78); WHITE BLOOD COUNT 10.9 10^3/uL (4.0-10.5)
[2019-01-11 12:03] LABS: ALANINE AMINOTRANSFERASE 25 U/L (9-52); ALBUMIN 4.7 g/dL (3.5-5.0); ALKALINE PHOSPHATASE 82 U/L (38-126); ANION GAP 11 (5-19); ASPARTATE AMINO TRANSFERASE 23 U/L (14-36); BILIRUBIN,DIRECT 0.3 mg/dL (0.0-0.4); BILIRUBIN,TOTAL 1.3 mg/dL (0.2-1.3); BLOOD UREA NITROGEN 12 mg/dL (7-20); CALCIUM 9.1 mg/dL (8.4-10.2); CARBON DIOXIDE 25 mmol/L (22-30); CHLORIDE 101 mmol/L (98-107); GLUCOSE 101 mg/dL (75-110); POTASSIUM 3.6 mmol/L (3.6-5.0); SODIUM 137.4 mmol/L (137-145)
--- NOTE | 2019-01-11 12:08 | RADIOLOGY REPORT (SQ) ---
EXAM DESCRIPTION: CHEST SINGLE VIEW COMPLETED DATE/TIME: 01/11/2019 11:35 am REASON FOR STUDY: chest pain COMPARISON: 08/03/2015 EXAM PARAMETERS: NUMBER OF VIEWS: One view. TECHNIQUE: Single frontal radiographic view of the chest acquired. RADIATION DOSE: NA LIMITATIONS: None. FINDINGS: LUNGS AND PLEURA: No opacities, masses or pneumothorax. No pleural effusion. MEDIASTINUM AND HILAR STRUCTURES: No masses. Contour normal. HEART AND VASCULAR STRUCTURES: Heart normal in size. Normal vasculature. BONES: No acute findings. HARDWARE: None in the chest. OTHER: No other significant finding. IMPRESSION: NO ACUTE RADIOGRAPHIC FINDING IN THE CHEST. TECHNICAL DOCUMENTATION: JOB ID: [id number] [employer]- All Rights Reserved Reading location - IP/workstation name: [email or web address]
--- NOTE | 2019-01-11 12:12 | EKG REPORT ---
SEVERITY:- NORMAL ECG - SINUS RHYTHM : Confirmed by: Franchesca Serna MD 11-Jan-2019 12:11:57
--- NOTE | 2019-01-11 13:54 | ER Document Report ---
ED General - General Chief Complaint: Chest Pressure Stated Complaint: CHEST PAIN Time Seen by Provider: 01/11/19 10:42 Primary Care Provider: MAXX AMAYA MD [Primary Care Provider] - Follow up as needed Mode of Arrival: Ambulatory Notes: 38-year-old female presented to the emergency department with multiple complaints. Patient reports yesterday she had an episode of acid reflux. She s tates this morning she woke up with sudden onset nausea, numbness in her bilateral hands, diaphoresis and a full feeling across the center of her chest. She denies any actual chest pain. Patient reports she took 81 mg of aspirin at home prior to coming to the emergency department. She denies any known cardiac history but reports a strong family history of cardiac disease with her grandmother having an acute myocardial infarction in her 40s. She is currently symptom-free except for some mild nausea. She states the sensation of the numbness and tingling in her bilateral hands and feet is no longer there. TRAVEL OUTSIDE OF THE [place] IN LAST 30 DAYS: No - Related Data Allergies/Adverse Reactions: Penicillins Allergy (Severe, Verified 01/11/19 10:31) Anaphylaxis Past Medical History - General Information source: Patient - Social History Smoking Status: Never Smoker Frequency of alcohol use: None Drug Abuse: None Family History: Reviewed & Not Pertinent - No personal or family history of DVT, PE or hypercoagulable states., CAD Patient has suicidal ideation: No Patient has homicidal ideation: No - Past Medical History Cardiac Medical History: Reports: Hx Pulmonary Embolism - Multiple 2014 Neurological Medical History: Reports: Hx Migraine Renal/ Medical History: Denies: Hx Peritoneal Dialysis GI Medical History: Reports: Hx Gastroesophageal Reflux Disease Musculoskeletal Medical History: Reports Hx Arthritis - RA Psychiatric Medical History: Reports: Hx Anxiety, Hx Depression Past Surgical History: Reports: Hx Section, Hx Myringotomy, Hx Orthopedic Surgery - back, right wrist, Hx Tonsillectomy - Immunizations Immunizations up to date: Yes Hx Diphtheria, Pertussis, Tetanus Vaccination: Yes Review of Systems - Review of Systems Constitutional: See HPI EENT: No symptoms reported Cardiovascular: See HPI Respiratory: See HPI Gastrointestinal: See HPI Genitourinary: No symptoms reported Female Genitourinary: No symptoms reported Musculoskeletal: No symptoms reported Skin: No symptoms reported Hematologic/Lymphatic: No symptoms reported Neurological/Psychological: See HPI Physical Exam - Vital signs Vitals: Temp Pulse Resp BP Pulse Ox 97.6 F 85 18 149/93 H 99 01/11/19 10:41 01/11/19 10:41 01/11/19 10:41 01/11/19 10:41 01/11/19 10:41 - Notes Notes: PHYSICAL EXAMINATION: Reviewed vital signs and charting by RN GENERAL: Alert, interacts well. No acute distress. HEAD: Normocephalic, atraumatic. EYES: Pupils equal and round. Extraocular movements intact. ENT: Oral mucosa moist, tongue midline. NECK: Full range of motion. Trachea midline. LUNGS: Clear to auscultation bilaterally, no wheezes, rales, or rhonchi. No respiratory distress. HEART: Regular rate and rhythm. No murmur ABDOMEN: soft, non-tender. No distention. Bowel sounds present EXTREMITIES: Moves all 4 extremities spontaneously. No edema, No cyanosis. PSYCH: Normal affect, normal mood. SKIN: Warm, dry, normal turgor. No rashes or lesions noted. Course - Re-evaluation Re-evalutation: 01/11/19 13:51 Generally well-appearing. Heart score 0. Initial troponin negative. Second troponin ordered. - Vital Signs Vital signs: Temp Pulse Resp BP Pulse Ox 97.6 F 85 18 149/93 H 96 01/11/19 10:41 01/11/19 10:41 01/11/19 10:41 01/11/19 10:41 01/11/19 13:57 - Laboratory Result Diagrams: 01/11/19 11:10 01/11/19 11:10 Laboratory results interpreted by me: 01/11/19 11:10 WBC 10.9 H Absolute Neutrophils 8.4 H Discharge - Discharge Clinical Impression: Nausea, Chest pressure, Numbness and tingling in both hands, Numbness and tingling of both legs Condition: Good Disposition: HOME, SELF-CARE Additional Instructions: You were seen today for chest pain. The exact cause of your pain is unclear. However, based on your cardiac enzyme testing, chest x-ray, and EKG it does not appear that it is from an immediately life-threatening cause at this time. Although your testing here is normal is critical that you follow-up with your primary care physician for continued evaluation of this chest pain and possible stress testing. I recommended you see your physician within the next 24-48 hours to be evaluated for consideration of a stress test. Please return to emergency department immediately if you have worsening of your chest pain, shortness of breath, vomiting, become unable to exert yourself due to pain or difficulty breathing, you pass out, or have any pain that radiates into your arms, jaw, or back. Please also return if you have any additional symptoms that are concerning to you. Referrals: MAXX AMAYA MD [Primary Care Provider] - Follow up as needed
[2019-01-11 17:08] VITALS: BP 128/82
== END 2019-01-11 17:08 | disposition home or self-care (01) ==
LOC: ER 10:31
DX: R11.0 Nausea (principal); R20.0 Anesthesia of skin; R07.9 Chest pain, unspecified; Z88.0 Allergy status to penicillin; Z86.711 Personal history of pulmonary embolism
CPT/HCPCS: 93005; 99285; 96374; 36415; 85025; 80053; 84484; 71045; 93010; J2405

== ENCOUNTER 2019-02-25 10:40 | Day surgery (SDC) | payer OTHER ==
[2019-02-25] MEDS ORDERED: MIDAZOLAM 2 MG/2 ML INJ ONE (12:11)
[2019-02-25] MEDS ORDERED: FENTANYL CITRATE INJ/PF 100 MCG/2 ML AMPUL ONE (12:11)
[2019-02-25] MEDS ORDERED: PROPOFOL INJ 200 MG/20 ML VIAL IV ONE (12:12)
[2019-02-25] MEDS ORDERED: LIDOCAINE 2%/EPINEPHRINE INJ 1.7 ML CARTRIDGE ONE (12:17)
[2019-02-25] MEDS ORDERED: COCAINE HCL 4% TOPICAL SOLN 4 ML ONE (12:17)
[2019-02-25] MEDS ORDERED: OXYMETAZOLINE HCL 0.05% NASAL SPRAY 15 ML BOTTLE ONE (12:17)
[2019-02-25] MEDS: FENTANYL CITRATE INJ/PF 100 MCG/2 ML AMPUL ONE ×2 (13:45→14:10)
--- NOTE | 2019-02-25 14:09 | [facility] OPERATIVE REPORT E ---
[facility] Operative Report NAME: MERARI CHAN AGE: 38Y DATE OF SURGERY: 02/25/2019 ROOM: HISTORY: A 38-year-old female with a history of right eustachian tube dysfunction. Presents today for right myringotomy with tympanostomy tube placement and a balloon dilation of the right eustachian tube. Informed consent was obtained from the patient. PREOPERATIVE DIAGNOSIS: RIGHT EUSTACHIAN TUBE DYSFUNCTION. POSTOPERATIVE DIAGNOSIS: RIGHT EUSTACHIAN TUBE DYSFUNCTION. OPERATION: 1. Right myringotomy with tympanostomy tube placement. 2. Rigid nasal endoscopy, right nasal cavity. 3. Reconstruction nasopharynx/eustachian tube balloon dilation, right side. CPT code 40049. SURGEON: MAXX AMAYA MD ANESTHESIA: General via endotracheal intubation. DESCRIPTION OF PROCEDURE: After receiving informed consent from the patient, she was taken to the operating room and placed supine on the operating room table. After successful induction intubation by anesthesia, pledgets soaked with 4% cocaine placed into each nasal cavity for approximately 5 minutes, after which time they were withdrawn. Then the nasal septum and inferior turbinates were injected with 2% Xylocaine and 100,000 epinephrine. Pledgets were replaced. Attention was then directed to the right ear. The microscope was brought into the field and under binocular microscopy, a properly sized speculum was placed into the external auditory canal. Tympanic membrane was visualized. A myringotomy knife was used to make a radial incision in the posterior inferior quadrant. Middle ear space was aspirated and found to be dry. Paparella PE tube placed in this incision. Otic drops were then placed into the external auditory canal. We then turned our attention to the eustachian tube balloon dilation. The pledgets were removed from the right nasal cavity. Using a 30 degree endoscope and the [employer] Aera eustachian tube balloon dilation system, the 30 degree endoscope was then inserted into the right nasal cavity along with the Aera eustachian tube balloon dilation system. The right eustachian tube orifice was cannulated using the [employer] Aera eustachian tube balloon dilation. This was cannulated under direct visualization with the 30-degree endoscope. At this point in time, the balloon was inflated to 12 atmospheres for 2 minutes. The balloon was released and retracted back into its trocar. The Aera system along with the endoscope were removed from the right nasal cavity. Patient was then given back to anesthesia who successfully extubated the patient without complication. The estimated blood loss was minimal; fluids about 800 mL crystalloid. Patient then transferred to the Postanesthesia Care Unit in stable condition, spontaneous respirations, no complications. DICTATING PHYSICIAN: MAXX AMAYA M.D. [id number] PHY#: [id number] ID: [id number] JOB#: [id number] ACCT: [id number] cc:MAXX AMAYA MD > MTDD
== END 2019-02-25 15:05 | disposition home or self-care (01) ==
LOC: SC 10:40
PROVIDERS: ATTEND Otolaryngology
DX: H69.81 Other specified disorders of Eustachian tube, right ear (principal); H60.391 Other infective otitis externa, right ear; H65.21 Chronic serous otitis media, right ear; Z79.82 Long term (current) use of aspirin; Z86.711 Personal history of pulmonary embolism; M06.9 Rheumatoid arthritis, unspecified
CPT/HCPCS: 69436; 42950; 31231; J2250; J3490 ×3; J3010; J2704; 160

== ENCOUNTER → 2019-05-14 | Outpatient (CLI) | payer BC ==
--- NOTE | 2019-05-14 12:10 | RADIOLOGY REPORT (SQ) ---
EXAM DESCRIPTION: KNEE RIGHT 4 VIEWS COMPLETED DATE/TIME: 05/14/2019 11:59 am REASON FOR STUDY: PAIN IN RIGHT KNEE M25.561 PAIN IN RIGHT KNEE COMPARISON: None. NUMBER OF VIEWS: Four views. TECHNIQUE: AP, lateral, and both oblique radiographic images acquired of the right knee. LIMITATIONS: None. FINDINGS: MINERALIZATION: Normal. BONES: No acute fracture or dislocation. No worrisome bone lesions. JOINT: No effusion. SOFT TISSUES: No soft tissue swelling. No radio-opaque foreign body. OTHER: No other significant finding. IMPRESSION: NEGATIVE STUDY OF THE RIGHT KNEE. NO RADIOGRAPHIC EVIDENCE OF ACUTE INJURY. TECHNICAL DOCUMENTATION: JOB ID: [id number] [employer]- All Rights Reserved Reading location - IP/workstation name: [email or web address]
== END ==
LOC: OD 11:30
PROVIDERS: ATTEND Nurse Practitioner Acute Care
DX: M25.561 Pain in right knee (principal)

== ENCOUNTER 2019-06-03 08:44 | Emergency (ER) | payer BC ==
--- NOTE | 2019-06-03 09:26 | RADIOLOGY REPORT (SQ) ---
EXAM DESCRIPTION: CHEST SINGLE VIEW COMPLETED DATE/TIME: 06/03/2019 9:15 am REASON FOR STUDY: DB COMPARISON: PA view of the chest from 01/11/2019. EXAM PARAMETERS: NUMBER OF VIEWS: One view. TECHNIQUE: Single frontal radiographic view of the chest acquired. RADIATION DOSE: NA LIMITATIONS: None. FINDINGS: LUNGS AND PLEURA: No consolidation, pleural effusion or pneumothorax. MEDIASTINUM AND HILAR STRUCTURES: No mediastinal or hilar contour abnormality. HEART AND VASCULAR STRUCTURES: The cardiac silhouette and pulmonary vasculature are within normal duron its. BONES: No acute findings. HARDWARE: None in the chest. OTHER: No other finding. IMPRESSION: No acute cardiopulmonary process. TECHNICAL DOCUMENTATION: JOB ID: [id number] [employer]- All Rights Reserved Reading location - IP/workstation name: [email or web address]
--- NOTE | 2019-06-03 09:32 | ER Document Report ---
ED General - General Chief Complaint: Breathing Difficulty Stated Complaint: SHORTNESS OF BREATH Time Seen by Provider: 06/03/19 09:12 Primary Care Provider: JIMMIE HART, TELEPHONE STATION REPAIRER [NURSE PRACTITIONER] - Follow up as needed TRAVEL OUTSIDE OF THE [place] IN LAST 30 DAYS: No COUNTRY TRAVELED TO/FROM: [facility] Onset/Duration: Gradual Severity: Moderate Pain Level: 2 Context: 38 year old female with h/o pe presents with fatigue, persistent cough for a month and some sob and chest pain today. Takes aspirin normally. Rheumatoid arthritis pt. No fever or chills. - Related Data Allergies/Adverse Reactions: Penicillins Allergy (Severe, Verified 06/03/19 08:55) Anaphylaxis Past Medical History - Social History Smoking Status: Never Smoker Chew tobacco use (# tins/day): No Frequency of alcohol use: None Drug Abuse: None Family History: Reviewed & Not Pertinent - No personal or family history of DVT, PE or hypercoagulable states., CAD Patient has suicidal ideation: No Patient has homicidal ideation: No - Past Medical History Cardiac Medical History: Reports: Hx Pulmonary Embolism - Multiple 2013 Denies: Hx Heart Attack, Hx Hypertension Pulmonary Medical History: Denies: Hx Asthma Neurological Medical History: Reports: Hx Migraine. Denies: Hx Cerebrovascular Accident, Hx Seizures Renal/ Medical History: Denies: Hx Peritoneal Dialysis GI Medical History: Reports: Hx Gastroesophageal Reflux Disease. Denies: Hx Hepatitis, Hx Hiatal Hernia, Hx Ulcer Musculoskeletal Medical History: Reports Hx Arthritis - RA Psychiatric Medical History: Reports: Hx Anxiety, Hx Depression Infectious Medical History: Denies: Hx Hepatitis Past Surgical History: Reports: Hx Section, Hx Myringotomy, Hx Orthopedic Surgery - back, right wrist, Hx Tonsillectomy. Denies: Hx Hysterectomy, Hx Mastectomy, Hx Open Heart Surgery, Hx Pacemaker - Immunizations Immunizations up to date: Yes Hx Diphtheria, Pertussis, Tetanus Vaccination: Yes Review of Systems - Review of Systems Constitutional: No symptoms reported EENT: No symptoms reported Cardiovascular: No symptoms reported Respiratory: No symptoms reported Gastrointestinal: No symptoms reported Genitourinary: No symptoms reported Female Genitourinary: No symptoms reported Musculoskeletal: No symptoms reported Skin: No symptoms reported Hematologic/Lymphatic: No symptoms reported Neurological/Psychological: No symptoms reported Physical Exam - Vital signs Vitals: Temp Pulse Resp BP Pulse Ox 97.6 F 97 16 139/94 H 100 06/03/19 08:48 06/03/19 08:48 06/03/19 08:48 06/03/19 08:48 06/03/19 08:48 Interpretation: Normal - General General appearance: Appears well, Alert - HEENT Head: Normocephalic, Atraumatic Eyes: Normal Pupils: PERRL - Respiratory Respiratory status: No respiratory distress Chest status: Nontender Breath sounds: Normal Chest palpation: Normal - Cardiovascular Rhythm: Regular Heart sounds: Normal auscultation Murmur: No - Abdominal Inspection: Normal Distension: No distension Bowel sounds: Normal Tenderness: Nontender Organomegaly: No organomegaly - Back Back: Normal, Nontender - Extremities General upper extremity: Normal inspection, Nontender, Normal color, Normal ROM, Normal temperature General lower extremity: Normal inspection, Nontender, Normal color, Normal ROM, Normal temperature, Normal weight bearing. No: Ellie's sign - Neurological Neuro grossly intact: Yes Cognition: Normal Orientation: AAOx4 [place] Coma Scale Eye Opening: Spontaneous [place] Coma Scale Verbal: Oriented [place] Coma Scale Motor: Obeys Commands R[place] Coma Scale Total: 15 Speech: Normal Motor strength normal: LUE, RUE, LLE, RLE Sensory: Normal - Psychological Associated symptoms: Normal affect, Normal mood - Skin Skin Temperature: Warm Skin Moisture: Dry Skin Color: Normal Course - Re-evaluation Re-evalutation: 06/03/19 12:22 MDM 38 year old with dyspnea and h/o pe. She has had a cough for about a month. No fever. Workup here includes CTA and there is no acute process in her chest. She has RA also and complains of hands swollen when I recheck on her. No chest pain. I see no evidence of ACS or acute cardiac process. Feel she is safe for follow up. Reviewed with her and and they expressed understanding. - Vital Signs Vital signs: Temp Pulse Resp BP Pulse Ox 97.6 F 97 16 139/94 H 96 06/03/19 08:48 06/03/19 08:48 06/03/19 08:48 06/03/19 08:48 06/03/19 09:01 - Laboratory Result Diagrams: 06/03/19 09:26 06/03/19 09:26 Laboratory results interpreted by me: 06/03/19 06/03/19 06/03/19 09:08 09:26 09:26 RDW 14.1 H Total Bilirubin 2.1 H Urine Blood SMALL H - Diagnostic Test Radiology reviewed: Image reviewed - NSR Nl [place] [address] elevateion or depression my interpretation. - EKG Interpretation by Me EKG shows normal: Sinus rhythm Rate: Normal Rhythm: NSR Discharge - Discharge Clinical Impression: Dyspnea Qualifiers: Dyspnea type: unspecified Qualified Code(s): R06.00 - Dyspnea, unspecified Condition: Good Disposition: HOME, SELF-CARE Instructions: Dyspnea, Nonspecific ([facility]), Cough Suppressant & Expectorant Medications Additional Instructions: See your doctor in follow up. Rest. Return here for any problems or any concerns. Prescriptions: Albuterol Sulfate [Albuterol Sulfate Hfa] 8.5 gm IH TID #1 [id number].[id number] Referrals: JIMMIE HART NP [NURSE PRACTITIONER] - Follow up as needed
[2019-06-03 09:45] LABS: ABSOLUTE EOSINOPHILS # (AUTO) 0.1 10^3/uL (0.0-0.6); ABSOLUTE LYMPHOCYTES (AUTO) 1.5 10^3/uL (0.5-4.7); ABSOLUTE MONOCYTES (AUTO) 0.3 10^3/uL (0.1-1.4); ABSOLUTE NEUT (AUTO) 2.4 10^3/uL (1.7-8.2); BASOPHILS % (AUTO) 0.5 % (0-2); EOSINOPHILS % (AUTO) 1.4 % (0-6); HEMATOCRIT 39.5 % (36.0-47.0); HEMOGLOBIN 13.4 g/dL (12.0-15.5); LYMPHOCYTES % (AUTO) 35.3 % (13-45); MEAN CORPUSCULAR HGB CONC 33.9 g/dL (32.0-36.0); MEAN CORPUSCULAR VOLUME 83 fl (80-97); PLATELET COUNT 263 10^3/uL (150-450); RED BLOOD COUNT 4.79 10^6/uL (3.72-5.28); RED CELL DISTRIBUTION WIDTH 14.1 % (11.5-14.0); SEGMENTED NEUTROPHILS % (AUTO) 55.8 % (42-78); TOTAL CELLS COUNTED % (AUTO) 100 %; WHITE BLOOD COUNT 4.4 10^3/uL (4.0-10.5)
[2019-06-03 10:01] LABS: INTERNATIONAL RATION (INR) 0.99; PROTHROMBIN TIME 13.1 SEC (11.4-15.4)
[2019-06-03 10:09] LABS: ALBUMIN 4.3 g/dL (3.5-5.0); ALKALINE PHOSPHATASE 63 U/L (38-126); ANION GAP 12 (5-19); ASPARTATE AMINO TRANSFERASE 20 U/L (14-36); BILIRUBIN,DIRECT 0.2 mg/dL (0.0-0.4); BILIRUBIN,TOTAL 2.1 mg/dL (0.2-1.3); BLOOD UREA NITROGEN 8 mg/dL (7-20); CALCIUM 9.3 mg/dL (8.4-10.2); CARBON DIOXIDE 26 mmol/L (22-30); CHLORIDE 104 mmol/L (98-107); GLUCOSE 81 mg/dL (75-110); POTASSIUM 3.7 mmol/L (3.6-5.0); TOTAL PROTEIN 7.2 g/dL (6.3-8.2)
[2019-06-03 10:11] LABS: APPEARANCE,URINE SLIGHTLY-CLOUDY; BILIRUBIN,URINE NEGATIVE (NEGATIVE); COLOR,URINE STRAW; GLUCOSE, URINE NEGATIVE (NEGATIVE); KETONES,URINE NEGATIVE (NEGATIVE); LEUKOCYTE ESTERASE,URINE NEGATIVE (NEGATIVE); NITRITE,URINE NEGATIVE (NEGATIVE); PROTEIN,URINE NEGATIVE (NEGATIVE); URINE SPECIFIC GRAVITY 1.004; UROBILINOGEN,URINE NEGATIVE mg/dL (<2.0)
[2019-06-03 10:24] LABS: NT PRO BNP < 12 pg/mL (<125); TROPONIN I < 0.012 ng/mL
--- NOTE | 2019-06-03 10:54 | RADIOLOGY REPORT (SQ) ---
EXAM DESCRIPTION: CTA CHEST COMPLETED DATE/TIME: 06/03/2019 10:36 am REASON FOR STUDY: chest pain/ sob COMPARISON: None. TECHNIQUE: CT scan of the chest performed using helical scanning technique with dynamic intravenous contrast injection. Images reviewed with lung, soft tissue and bone windows. Reconstructed coronal and sagittal MPR images reviewed. Additional 3 dimensional post-processing performed to develop Maximal Intensity Projection images (CT P). All images stored on PACS. All CT scanners at this facility use dose modulation, iterative reconstruction, and/or weight based d osing when appropriate to reduce radiation dose to as low as reasonably achievable (ALARA). [facility]: Dose Right [facility]: CareDose [facility]: Dose Right [facility]: Teradose 4D [facility]: [employer] CONTRAST TYPE AND DOSE: contrast/concentration: Isovue 350.00 mg/ml; Total Contrast Delivered: 65.0 ml; Total Saline Delivered: 70.0 ml Contrast bolus optimized for the pulmonary arteries. Not diagnostic for the aorta. RENAL FUNCTION: GFR > 60. RADIATION DOSE: CT Rad equipment meets quality standard of care and radiation dose reduction techniq ues were employed. CTDIvol: 3.3 - 20.4 mGy. DLP: 746 mGy-cm. . LIMITATIONS: None. FINDINGS: LUNGS AND PLEURA: The trachea main bronchi are patent. There is no consolidation, pleural effusion or pneumothorax. AORTA AND GREAT VESSELS: Evaluation is limited as the contrast bolus was optimized for evaluation of the pulmonary arteries. There is no thoracic aortic aneurysm. HEART: No cardiomegaly, pericardial effusion or coronary artery calcifications. PULMONARY ARTERIES: No pulmonary embolus. HILAR AND MEDIASTINAL STRUCTURES: No mediastinal or hilar adenopathy. HARDWARE: None in the chest. UPPER ABDOMEN: Splenules in the splenic hilum. THYROID AND OTHER SOFT TISSUES: No masses or adenopathy. BONES: No acute findings. 3D MIPS: Confirm above findings. OTHER: No other finding. IMPRESSION: No pulmonary embolus and no acute cardiopulmonary process. COMMENT: Quality ID # [id number]: Final reports with documentation of one or more dose reduction techniques (e.g., Automated exposure control, adjustment of the mA and/or kV according to patient size, use of iterative reconstruction technique) TECHNICAL DOCUMENTATION: JOB ID: [id number] [employer]- All Rights Reserved Reading location - IP/workstation name: [email or web address]
[2019-06-03 12:37] VITALS: BP 126/74
--- NOTE | 2019-06-03 16:19 | EKG REPORT ---
SEVERITY:- NORMAL ECG - SINUS RHYTHM : Confirmed by: Franchesca Serna MD 03-Jun-2019 16:18:20
== END 2019-06-03 12:39 | disposition home or self-care (01) ==
LOC: ER 08:44
DX: R06.00 Dyspnea, unspecified (principal); R06.02 Shortness of breath; Z79.82 Long term (current) use of aspirin; Z86.711 Personal history of pulmonary embolism
CPT/HCPCS: 36415; 71045; 71275; 80053; 81001; 81025; 83880; 84484; 85025; 85610; 93005; 93010; 99285

== ENCOUNTER 2019-11-25 10:12 | Emergency (ER) | payer BC ==
--- NOTE | 2019-11-25 10:58 | ER Document Report ---
ED Medical Screen (RME) - General Stated Complaint: CHEST PAIN Time Seen by Provider: 11/25/19 10:52 Primary Care Provider: NIKKI PLAZA FNP-C [Primary Care Provider] - Follow up as needed TRAVEL OUTSIDE OF THE [place] IN LAST 30 DAYS: No - HPI Notes: 11/25/19 10:58 38-year-old female with a history of PE presents the emergency room with complaints of chest pain and shortness of breath for the last 3 weeks. Patient has been seen by her PCP and they have been trying allergy medications, but she states that this is similar to how her last PE presented so she wanted to get checked out. Patient reports heaviness and pressure with intermittent shortness of breath when she is having chest pain. Her last PE was in 2013, she does take a baby aspirin daily. Patient is not on control pills, has not had any recent periods of immobilization, long car rides, long flights, no recent surgeries, no history of cancer. Patient's PCP is nikki hernandez at [facility]. Patient states when she did have her last PE, she was seen in the ER and was told she had anxiety. she did follow-up with her primary care provider who is awaiting for CTA to be approved by insurance. The following morning after her pcp visit, she woke up with severe shortness of breath and was airlifted to [place]. Patient states the symptoms feel similar to her last PE. GENERAL: Well-appearing, well-nourished and in no acute distress. HEAD: Atraumatic, normocephalic. NECK: Normal range of motion CV: Heart regular rate and rhythm LUNGS: No respiratory distress ABD: generalized abd pain Musculoskeletal: Normal range of motion NEUROLOGICAL: Normal speech PSYCH: Normal mood, normal affect. MDM: Patient seen and examined for rapid initial assessment. Vital signs reviewed. A comprehensive ED assessment and evaluation of the patient, analysis of test results and completion of the medical decision making process will be conducted by additional ED providers. *Note is created using voice recognition software and may contain spelling, syntax or grammatical errors. - Related Data Allergies/Adverse Reactions: Penicillins Allergy (Severe, Verified 06/03/19 08:55) Anaphylaxis Past Medical History - Past Medical History Cardiac Medical History: Reports: Hx Pulmonary Embolism - Multiple 2013 Denies: Hx Heart Attack, Hx Hypertension Pulmonary Medical History: Denies: Hx Asthma Neurological Medical History: Reports: Hx Migraine. Denies: Hx Cerebrovascular Accident, Hx Seizures Renal/ Medical History: Denies: Hx Peritoneal Dialysis GI Medical History: Reports: Hx Gastroesophageal Reflux Disease. Denies: Hx Hepatitis, Hx Hiatal Hernia, Hx Ulcer Musculoskeltal Medical History: Reports Hx Arthritis - RA Psychiatric Medical History: Reports: Hx Anxiety, Hx Depression Infectious Medical History: Denies: Hx Hepatitis Past Surgical History: Reports: Hx Section, Hx Myringotomy, Hx Orthopedic Surgery - back, right wrist, Hx Tonsillectomy. Denies: Hx Hysterectomy, Hx Mastectomy, Hx Open Heart Surgery, Hx Pacemaker - Immunizations Immunizations up to date: Yes Hx Diphtheria, Pertussis, Tetanus Vaccination: Yes Physical Exam - Vital signs Vitals: Temp Pulse Resp BP Pulse Ox 98.6 F 87 16 142/82 H 99 11/25/19 10:22 11/25/19 10:22 11/25/19 10:22 11/25/19 10:22 11/25/19 10:22 Course - Vital Signs Vital signs: Temp Pulse Resp BP Pulse Ox 98.6 F 87 16 142/82 H 99 11/25/19 10:22 11/25/19 10:22 11/25/19 10:22 11/25/19 10:22 11/25/19 10:22 Doctor's Discharge - Discharge Referrals: NIKKI PLAZA FNP-C [Primary Care Provider] - Follow up as needed
--- NOTE | 2019-11-25 11:41 | ER Document Report ---
ED General - General Chief Complaint: Chest Pain Stated Complaint: CHEST PAIN Time Seen by Provider: 11/25/19 10:52 Primary Care Provider: NIKKI PLAZA FNP-C [Primary Care Provider] - Follow up as needed Notes: CHIEF COMPLAINT: Intermittent shortness of breath for 3 weeks HPI: 38-year-old female with history of lupus as well as PE 4 years ago presenting for intermittent shortness of breath for 3 weeks. Has been seeing her PCP for this, states they put her on albuterol and antihistamines without resolution of the shortness of breath. States that she has not short of breath all the time, feels like she cannot take a deep breath and at times especially when doing exertional activities. Reports sternal chest discomfort that has been constant for 3 weeks, worse with palpation and movement. No fever. No recent travel or exposures to known COVID-19. ROS: See HPI - all other systems were reviewed and are otherwise negative Constitutional: no fever Eyes: no drainage, no blurred vision ENT: no runny nose, no sore throat Cardiovascular: + sternal chest pain Resp: + SOB, no cough GI: no vomiting, no diarrhea, no abdominal pain : no dysuria Integumentary: no rash Allergy: no hives Musculoskeletal: no extremity pain or swelling Neurological: no numbness/tingling, no weakness MEDICATIONS: I agree with the patient medications as charted by the RN. ALLERGIES: I agree with the allergies as charted by the RN. PAST MEDICAL HISTORY/PAST SURGICAL HISTORY: Reviewed and agree as charted by RN. SOCIAL HISTORY: Reviewed and agree as charted by RN. FAMILY HISTORY: No significant familial comorbid conditions directly related to patient complaint EXAM: Reviewed vital signs as charted by RN. CONSTITUTIONAL: Alert and oriented and responds appropriately to questions. Well-appearing; well-nourished HEAD: Normocephalic; atraumatic EYES: PERRL; Conjunctivae clear, sclerae non-icteric ENT: normal nose; no rhinorrhea; moist mucous membranes; pharynx without lesions noted, no uvula edema or deviation, no tonsillar hypertrophy, phonation normal NECK: Supple without meningismus; non-tender; no cervical lymphadenopathy, no masses CARD: RRR; no murmurs, no clicks, no rubs, no gallops; symmetric distal pulses RESP: Normal chest excursion without splinting or tachypnea; breath sounds clear and equal bilaterally; no wheezes, no rhonchi, no rales, pulse oximetry 97% on room air not hypoxic. Mild tenderness over the sternal chest wall on palpation ABD/GI: Normal bowel sounds; non-distended; soft, non-tender, no rebound, no guarding; no palpable organomegaly or masses. BACK: The back appears normal and is non-tender to palpation, there is no CVA tenderness EXT: Normal ROM in all joints; non-tender to palpation; no cyanosis, no effusions, no edema SKIN: Normal color for age and race; warm; dry; good turgor; no acute lesions noted NEURO: Moves all extremities equally; Motor and sensory function intact PSYCH: The patient's mood and manner are appropriate. Grooming and personal hygiene are appropriate. MDM: 38-year-old female presenting over concerns for PE. States she has had int ermittent shortness of breath for 3 weeks where she feels like she cannot take a deep breath and states albuterol has not helped. No active wheezing, not hypoxic, not significantly tachycardic. She does have PE history. Initial screening labs and imaging studies placed in triage process. TRAVEL OUTSIDE OF THE [place] IN LAST 30 DAYS: No - Related Data Allergies/Adverse Reactions: Penicillins Allergy (Severe, Verified 06/03/19 08:55) Anaphylaxis Home Medications: Aspirin 81 mg Past Medical History - Social History Smoking Status: Unknown if Ever Smoked Family History: Reviewed & Not Pertinent - No personal or family history of DVT, PE or hypercoagulable states., CAD Patient has homicidal ideation: No - Past Medical History Cardiac Medical History: Reports: Hx Pulmonary Embolism - Multiple 2013 Denies: Hx Heart Attack, Hx Hypertension Pulmonary Medical History: Denies: Hx Asthma Neurological Medical History: Reports: Hx Migraine. Denies: Hx Cerebrovascular Accident, Hx Seizures Renal/ Medical History: Denies: Hx Peritoneal Dialysis GI Medical History: Reports: Hx Gastroesophageal Reflux Disease. Denies: Hx Hepatitis, Hx Hiatal Hernia, Hx Ulcer Musculoskeletal Medical History: Reports Hx Arthritis - RA Psychiatric Medical History: Reports: Hx Anxiety, Hx Depression Infectious Medical History: Denies: Hx Hepatitis Past Surgical History: Reports: Hx Section, Hx Myringotomy, Hx Orthopedic Surgery - back, right wrist, Hx Tonsillectomy. Denies: Hx Hysterectomy, Hx Mastectomy, Hx Open Heart Surgery, Hx Pacemaker - Immunizations Immunizations up to date: Yes Hx Diphtheria, Pertussis, Tetanus Vaccination: Yes Physical Exam - Vital signs Vitals: Temp Pulse Resp BP Pulse Ox 98.6 F 87 16 142/82 H 99 11/25/19 10:22 11/25/19 10:22 11/25/19 10:22 11/25/19 10:22 11/25/19 10:22 Course - Re-evaluation Re-evalutation: 11/25/19 13:07 CT imaging and lab work does not show acute emergent abnormalities. Low suspicion for ACS. Patient likely has an inflammatory process. Will place her on a course of steroids follow-up with PCP patient is in agreement with this plan. - Vital Signs Vital signs: Temp Pulse Resp BP Pulse Ox 98.8 F 94 20 126/81 H 97 11/25/19 11:31 11/25/19 11:31 11/25/19 11:31 11/25/19 11:31 11/25/19 11:31 - Laboratory Result Diagrams: 11/25/19 11:20 11/25/19 11:20 Laboratory results interpreted by me: 11/25/19 11/25/19 11:20 11:20 RDW 14.9 H Sodium 135.7 L Discharge - Discharge Clinical Impression: Shortness of breath, Chest wall pain Condition: Stable Disposition: HOME, SELF-CARE Additional Instructions: Imaging studies today did not show evidence of a blood clot or other significant abnormalities. Your lab work did not show acute emergent abnormalities. Take the prednisone as prescribed continue to use the albuterol inhaler 2 puffs every 4 hours as needed for shortness of breath. Follow-up with your primary care provider for reevaluation of your symptoms call for appointment Prescriptions: Prednisone [Deltasone 20 mg Tablet] 2 tab PO DAILY 5 Days #10 tablet Referrals: NIKKI PLAZA FNP-C [Primary Care Provider] - Follow up as needed
[2019-11-25 11:50] LABS: INTERNATIONAL RATION (INR) 0.97; PROTHROMBIN TIME 12.9 SEC (11.4-15.4)
[2019-11-25 11:51] LABS: PARTIAL THROMBOPLASTIN TIME 25.9 SEC (23.5-35.8)
[2019-11-25 11:55] LABS: ABSOLUTE EOSINOPHILS # (AUTO) 0.1 10^3/uL (0.0-0.6); ABSOLUTE LYMPHOCYTES (AUTO) 2.1 10^3/uL (0.5-4.7); ABSOLUTE MONOCYTES (AUTO) 0.3 10^3/uL (0.1-1.4); ABSOLUTE NEUT (AUTO) 2.8 10^3/uL (1.7-8.2); BASOPHILS % (AUTO) 0.7 % (0-2); EOSINOPHILS % (AUTO) 1.3 % (0-6); HEMATOCRIT 39.2 % (36.0-47.0); HEMOGLOBIN 13.4 g/dL (12.0-15.5); LYMPHOCYTES % (AUTO) 39.2 % (13-45); MEAN CORPUSCULAR HGB CONC 34.2 g/dL (32.0-36.0); MEAN CORPUSCULAR VOLUME 82 fl (80-97); MONOCYTES % (AUTO) 6.4 % (3-13); PLATELET COUNT 253 10^3/uL (150-450); RED BLOOD COUNT 4.79 10^6/uL (3.72-5.28); RED CELL DISTRIBUTION WIDTH 14.9 % (11.5-14.0); SEGMENTED NEUTROPHILS % (AUTO) 52.4 % (42-78); TOTAL CELLS COUNTED % (AUTO) 100 %; WHITE BLOOD COUNT 5.4 10^3/uL (4.0-10.5)
[2019-11-25 12:03] LABS: ALBUMIN 4.3 g/dL (3.5-5.0); ALKALINE PHOSPHATASE 58 U/L (38-126); ANION GAP 8 (5-19); ASPARTATE AMINO TRANSFERASE 21 U/L (14-36); BLOOD UREA NITROGEN 11 mg/dL (7-20); CALCIUM 9.2 mg/dL (8.4-10.2); CARBON DIOXIDE 27 mmol/L (22-30); CHLORIDE 101 mmol/L (98-107); CREATINE KINASE 115 U/L (30-135); GLUCOSE 89 mg/dL (75-110); POTASSIUM 4.1 mmol/L (3.6-5.0); TOTAL PROTEIN 7.2 g/dL (6.3-8.2)
[2019-11-25 12:15] LABS: CREATINE KINASE MB 0.47 ng/mL (<4.55)
[2019-11-25 12:20] LABS: TROPONIN I < 0.012 ng/mL
--- NOTE | 2019-11-25 12:53 | RADIOLOGY REPORT (SQ) ---
EXAM DESCRIPTION: CTA CHEST IMAGES COMPLETED DATE/TIME: 11/25/2019 12:37 pm REASON FOR STUDY: sob, hx of PE COMPARISON: None. TECHNIQUE: CT scan of the chest performed using helical scanning technique with dynamic intravenous contrast injection. Images reviewed with lung, soft tissue and bone windows. Reconstructed coronal and sagittal MPR images reviewed. Additional 3 dimensional post-processing performed to develop Maximal Intensity Projection images ([place] P). All images stored on PACS. All CT scanners at this facility use dose modulation, iterative reconstruction, and/or weight based d osing when appropriate to reduce radiation dose to as low as reasonably achievable (ALARA). [facility]: Dose Right [facility]: CareDose [facility]: Dose Right [facility]: Teradose 4D [facility]: [employer] CONTRAST TYPE AND DOSE: Contrast/concentration: Isovue 350.00 mg/ml; Total Contrast Delivered: 69.0 ml; Total Saline Delivered: 70.0 ml Contrast bolus optimized for the pulmonary arteries. RENAL FUNCTION: None required. The patient is less than 50 years old. RADIATION DOSE: CT Rad equipment meets quality standard of care and radiation dose reduction techniq ues were employed. CTDIvol: 3.3 - 21.1 mGy. DLP: 809 mGy-cm. LIMITATIONS: None. FINDINGS: LUNGS AND PLEURA: The trachea main bronchi are patent. There is no consolidation, ground- glass opacification, pleural effusion or pneumothorax. AORTA AND GREAT VESSELS: No thoracic aortic dissection or aneurysm. HEART: No cardiomegaly or pericardial effusion. PULMONARY ARTERIES: No emboli. HILAR AND MEDIASTINAL STRUCTURES: No adenopathy or mass. HARDWARE: None in the chest. UPPER ABDOMEN: No acute findings. THYROID AND OTHER SOFT TISSUES: No mass or adenopathy. BONES: No fracture or osseous lesion. 3D MIPS: Confirm above findings. OTHER: No other finding. IMPRESSION: No pulmonary emboli and no acute cardiopulmonary process. COMMENT: Quality ID # [id number]: Final reports with documentation of one or more dose reduction techniques (e.g., Automated exposure control, adjustment of the mA and/or kV according to patient size, use of iterative reconstruction technique) TECHNICAL DOCUMENTATION: JOB ID: [id number] 2010 [employer]- All Rights Reserved Reading location - IP/workstation name: [email or web address]
--- NOTE | 2019-11-25 12:57 | EKG REPORT ---
SEVERITY:- NORMAL ECG - SINUS RHYTHM : Confirmed by: Jenaro Jay MD 25-Nov-2019 12:56:16
[2019-11-25] MEDS ORDERED: PREDNISONE 20 MG TABLET PO ONE (13:08)
[2019-11-25 13:35] VITALS: BP 134/89
== END 2019-11-25 13:43 | disposition home or self-care (01) ==
LOC: ER 10:12
DX: R06.02 Shortness of breath (principal); R07.89 Other chest pain; Z79.82 Long term (current) use of aspirin; Z86.711 Personal history of pulmonary embolism; Z87.892 Personal history of anaphylaxis; Z88.0 Allergy status to penicillin; Z82.49 Family history of ischemic heart disease and other diseases of the circulatory system
CPT/HCPCS: 93005; 99285; 36415; 82553; 82550; 85025; 85610; 85730; 81025; 80053; 84484; 71275; 93010; J7512

== ENCOUNTER → 2020-05-18 | Outpatient (CLI) | payer BC ==
--- NOTE | 2020-05-18 17:10 | RADIOLOGY REPORT (SQ) ---
EXAM DESCRIPTION: U/S THYROID/SFT TISS HD NECK IMAGES COMPLETED DATE/TIME: 05/18/2020 4:09 pm REASON FOR STUDY: (R59.0)LOCALIZED ENLARGED LYMPH NODES R59.0 LOCALIZED ENLARGED LYMPH NODES COMPARISON: None. TECHNIQUE: Dynamic and static rivera-scale images acquired of the submandibular region in the area of palpable abnormality. Selected additional color/power Doppler images recorded. All images stored to PACS. LIMITATIONS: None. FINDINGS: Scanning of the submental region in the area of palpable abnormality. To the right of mid line, an 11 x 6 x 6 mm lymph node is present with normal cortical thickness and preserved central hil ar fat. Just to the left of midline in the submental region, a 9 x 8 x 7 mm lymph node is present with normal cortical thickness and preserved central hilar fat. IMPRESSION: Palpable nodules under the chin correlate with small benign-appearing lymph nodes. TECHNICAL DOCUMENTATION: JOB ID: [id number] 2010 [employer]- All Rights Reserved Reading location - IP/workstation name: [email or web address]
== END ==
LOC: RAD 15:40
PROVIDERS: ATTEND Nurse Practitioner Family
DX: R59.0 Localized enlarged lymph nodes (principal)
CPT/HCPCS: 76536

== ENCOUNTER 2020-07-25 14:19 | Emergency (ER) | payer BC ==
--- NOTE | 2020-07-25 14:34 | ER Document Report ---
ED Medical Screen (RME) - General Stated Complaint: CHEST PAIN/NECK PAIN Time Seen by Provider: 07/25/20 14:31 Primary Care Provider: CARLOS A PIERCE NP [Primary Care Provider] - Follow up as needed Notes: Patient is a 39-year-old female with a history of rheumatoid arthritis who presents emergency department with a chief complaint of jaw/neck pain and chest pain. Patient reports that her symptoms started about 2 hours prior to arrival to the emergency department. She went to urgent care and was referred to the emergency department. Patient is currently on control. States that every time she takes a deep breath then, she feels short of breath. Exam: S1, S2. I have greeted and performed a rapid initial assessment of this patient. A comprehensive ED assessment and evaluation of the patient, analysis of test results and completion of medical decision making process will be conducted by an additional ED providers. TRAVEL OUTSIDE OF THE [place] IN LAST 30 DAYS: No - Related Data Allergies/Adverse Reactions: Penicillins Allergy (Severe, Verified 06/03/19 08:55) Anaphylaxis Past Medical History - Past Medical History Cardiac Medical History: Reports: Hx Pulmonary Embolism - Multiple 2013 Denies: Hx Heart Attack, Hx Hypertension Pulmonary Medical History: Denies: Hx Asthma Neurological Medical History: Reports: Hx Migraine. Denies: Hx Cerebrovascular Accident, Hx Seizures Renal/ Medical History: Denies: Hx Peritoneal Dialysis GI Medical History: Reports: Hx Gastroesophageal Reflux Disease. Denies: Hx Hepatitis, Hx Hiatal Hernia, Hx Ulcer Musculoskeltal Medical History: Reports Hx Arthritis - RA Psychiatric Medical History: Reports: Hx Anxiety, Hx Depression Infectious Medical History: Denies: Hx Hepatitis Past Surgical History: Reports: Hx Section, Hx Myringotomy, Hx Orthopedic Surgery - back, right wrist, Hx Tonsillectomy. Denies: Hx Hysterectomy, Hx Mastectomy, Hx Open Heart Surgery, Hx Pacemaker - Immunizations Immunizations up to date: Yes Hx Diphtheria, Pertussis, Tetanus Vaccination: Yes Doctor's Discharge - Discharge Referrals: CARLOS A PIERCE NP [Primary Care Provider] - Follow up as needed
[2020-07-25 14:52] LABS: ABSOLUTE BASOPHILS # (AUTO) 0.1 10^3/uL (0.0-0.2); ABSOLUTE EOSINOPHILS # (AUTO) 0.1 10^3/uL (0.0-0.6); ABSOLUTE LYMPHOCYTES (AUTO) 2.7 10^3/uL (0.5-4.7); ABSOLUTE MONOCYTES (AUTO) 0.7 10^3/uL (0.1-1.4); BASOPHILS % (AUTO) 0.6 % (0-2); EOSINOPHILS % (AUTO) 0.9 % (0-6); HEMATOCRIT 38.6 % (36.0-47.0); HEMOGLOBIN 12.9 g/dL (12.0-15.5); MEAN CORPUSCULAR HEMOGLOBIN 26.7 pg (27.0-33.4); MEAN CORPUSCULAR HGB CONC 33.3 g/dL (32.0-36.0); MEAN CORPUSCULAR VOLUME 80 fl (80-97); MONOCYTES % (AUTO) 5.9 % (3-13); PLATELET COUNT 242 10^3/uL (150-450); RED BLOOD COUNT 4.82 10^6/uL (3.72-5.28); RED CELL DISTRIBUTION WIDTH 14.4 % (11.5-14.0); SEGMENTED NEUTROPHILS % (AUTO) 69.6 % (42-78); TOTAL CELLS COUNTED % (AUTO) 100 %; WHITE BLOOD COUNT 11.5 10^3/uL (4.0-10.5)
--- NOTE | 2020-07-25 15:04 | RADIOLOGY REPORT (SQ) ---
EXAM DESCRIPTION: CHEST 2 VIEWS IMAGES COMPLETED DATE/TIME: 07/25/2020 2:53 pm REASON FOR STUDY: chest/neck pain COMPARISON: 06/03/2019 EXAM PARAMETERS: NUMBER OF VIEWS: two views TECHNIQUE: Digital Frontal and Lateral radiographic views of the chest acquired. RADIATION DOSE: NA LIMITATIONS: none FINDINGS: LUNGS AND PLEURA: No opacities, masses or pneumothorax. No pleural effusion. MEDIASTINUM AND HILAR STRUCTURES: No masses or contour abnormalities. HEART AND VASCULAR STRUCTURES: Heart normal size. No evidence for failure. BONES: No acute findings. HARDWARE: None in the chest. OTHER: No other significant finding. IMPRESSION: NO ACUTE RADIOGRAPHIC FINDING IN THE CHEST. TECHNICAL DOCUMENTATION: JOB ID: [id number] [employer]- All Rights Reserved Reading location - IP/workstation name: [email or web address]
[2020-07-25 15:09] LABS: ALBUMIN 4.2 g/dL (3.5-5.0); ALKALINE PHOSPHATASE 66 U/L (38-126); ANION GAP 6 (5-19); ASPARTATE AMINO TRANSFERASE 19 U/L (14-36); BILIRUBIN,DIRECT 0.1 mg/dL (0.0-0.4); BILIRUBIN,TOTAL 1.3 mg/dL (0.2-1.3); BLOOD UREA NITROGEN 9 mg/dL (7-20); CARBON DIOXIDE 28 mmol/L (22-30); CHLORIDE 103 mmol/L (98-107); CREATINE KINASE 79 U/L (30-135); GLUCOSE 83 mg/dL (75-110); POTASSIUM 4.1 mmol/L (3.6-5.0); TOTAL PROTEIN 6.9 g/dL (6.3-8.2)
--- NOTE | 2020-07-25 17:57 | EKG REPORT ---
SEVERITY:- NORMAL ECG - SINUS RHYTHM : Confirmed by: Teofilo Quijano MD 25-Jul-2020 17:56:19
[2020-07-25] MEDS ORDERED: DEXAMETHASONE SOD PHOS INJ 10 MG/1 ML VIAL IV ONE (23:59)
[2020-07-25] MEDS ORDERED: KETOROLAC TROMETHAMINE INJ/PF 30 MG/1 ML SDV IV ONE (23:59)
--- NOTE | 2020-07-26 00:19 | ER Document Report ---
ED General - General Stated Complaint: CHEST PAIN/NECK PAIN Time Seen by Provider: 07/25/20 14:31 Primary Care Provider: CARLOS A PIERCE NP [Primary Care Provider] - Follow up as needed Mode of Arrival: Ambulatory Information source: Patient Notes: 39-year-old woman presents to the emergency department with a complaint of pain and he submental area of her neck and extending across the right upper trapezius area of the shoulder and into the right anterior chest wall. She also has tenderness in the midsternal region. History of pulmonary embolus in the past she also complains of evaluation as an outpatient for lupus which has been indeterminate. Presently she is not taking any medications for the discomfort. States that today she could not get comfortable and notes that she has been in the emergency department since 2:00 in the afternoon. She is an EKG is a lab work done and states that she feels like she could just go home and lay down. TRAVEL OUTSIDE OF THE [place] IN LAST 30 DAYS: No - Related Data Allergies/Adverse Reactions: Penicillins Allergy (Severe, Verified 06/03/19 08:55) Anaphylaxis Past Medical History - Social History Smoking Status: Unknown if Ever Smoked Family History: Reviewed & Not Pertinent, CAD - Past Medical History Cardiac Medical History: Reports: Hx Pulmonary Embolism - Multiple 2013 Denies: Hx Heart Attack, Hx Hypertension Pulmonary Medical History: Denies: Hx Asthma Neurological Medical History: Reports: Hx Migraine. Denies: Hx Cerebrovascular Accident, Hx Seizures Renal/ Medical History: Denies: Hx Peritoneal Dialysis GI Medical History: Reports: Hx Gastroesophageal Reflux Disease. Denies: Hx Hepatitis, Hx Hiatal Hernia, Hx Ulcer Musculoskeletal Medical History: Reports Hx Arthritis - RA Psychiatric Medical History: Reports: Hx Anxiety, Hx Depression Infectious Medical History: Denies: Hx Hepatitis Past Surgical History: Reports: Hx Section, Hx Myringotomy, Hx Orthopedic Surgery - back, right wrist, Hx Tonsillectomy. Denies: Hx Hysterectomy, Hx Mastectomy, Hx Open Heart Surgery, Hx Pacemaker - Immunizations Immunizations up to date: Yes Hx Diphtheria, Pertussis, Tetanus Vaccination: Yes Review of Systems - Review of Systems Notes: Constitutional: Negative for fever. HENT: + Neck pain Eyes: Negative for visual changes. Cardiovascular: + Chest pain Respiratory: Negative for shortness of breath. Gastrointestinal: Negative for abdominal pain, vomiting or diarrhea. Genitourinary: Negative for dysuria. Musculoskeletal: Negative for back pain. Skin: Negative for rash. Neurological: Negative for headaches, weakness or numbness. 10 point ROS negative except as marked above and in HPI. Physical Exam - Vital signs Vitals: Temp Pulse Resp BP Pulse Ox 98.6 F 86 16 152/96 H 100 07/25/20 14:34 07/25/20 14:34 07/25/20 14:34 07/25/20 14:34 07/25/20 14:34 - Notes Notes: PHYSICAL EXAMINATION: Physical Exam: General: Well-nourished well-developed 39-year-old female in no acute distress HEENT: NC/AT, pupils equal round and reactive to light, MM moist,nares clear, oropharynx clear, airway patent Neck: supple, no adenopathy, no masses. Good range of motion Lungs: clear, no wheezing, no rales no rhonchi CVS: Regular rate and rhythm no murmur gallop or rub Abdomen: Soft, active, nontender, no masses, no hepatosplenomegaly Ext: No edema, clubbing or cyanosis. Neuro: Alert and responsive, moving all 4 extremities on command, cranial nerves intact, no focal findings Skin: Intact no open lesions, no rash Course - Re-evaluation Re-evalutation: 07/26/20 00:20 Patient presents with a history of - Vital Signs Vital signs: Temp Pulse Resp BP Pulse Ox 98.2 F 92 22 H 142/85 H 99 07/26/20 01:30 07/26/20 01:30 07/26/20 01:30 07/26/20 01:30 07/26/20 01:30 - Laboratory Results Result Diagrams: 07/25/20 14:40 07/25/20 14:40 Laboratory Results Interpreted: 07/25/20 14:40 WBC 11.5 H MCH 26.7 L RDW 14.4 H 07/26/20 01:09 I have reviewed laboratory data and used this information for the treatment decisions regarding the patient. Critical Laboratory Results Reviewed: No Critical Results - Radiology Results Radiology Results Interpreted: 07/26/20 01:08 Chest X-Ray 07/25/20 14:32 IMPRESSION: NO ACUTE RADIOGRAPHIC FINDING IN THE CHEST. Critical Radiology Results Reviewed: No Critical Results Discharge - Discharge Clinical Impression: Neck pain, Chest wall pain Condition: Good Disposition: HOME, SELF-CARE Instructions: Anti-Inflammatory Medication ([facility]), Chest Wall Pain ([facility]) Additional Instructions: You are seen in the emergency department tonight with neck and chest wall pain which has been ongoing for some time. The evaluation of your EKG and lab test reveals that there are no acute coronary/heart related issues that could be identified with this testing. There is tenderness to touch which may support the idea that this is inflammatory and anti-inflammatory medications may help. We have given you a dose of Toradol and Decadron in the emergency department. If that medication is useful please let your doctor know. HOME CARE INSTRUCTIONS & INFORMATION: Thank you for choosing us for your medical needs. We hope you're satisfied with the care you received. After you leave, you must properly care for your problem and, at the same time, observe its progress. Any condition can change. Some illnesses can change rapidly over hours or days. If your condition worsens, return to the Emergency Department or see your physician promptly. ABOUT YOUR X-RAYS AND EKG'S: If you had an EKG or X-rays taken, they have been read by the Emergency Physician. The X-rays and EKG's will also be read by a Radiologist or Minibus Driver within 24 hours. If discrepancies are noted, you will be notified by telephone. Please be certain the ED has a correct telephone number & address where you can be reached. Also, realize that some fractures or abnormalities do not show up on initial X-rays. If your symptoms continue, see your physician. ABOUT YOUR LABORATORY TEST: If you had laboratory tests, the results have been reviewed by the Emergency Physician. Some test results (for example cultures) may not be available for several days. You will be contacted if any test result shows you need additional treatment. Please be certain the ED has a correct telephone number and address where you can be reached. ABOUT YOUR MEDICATIONS: You will receive instructions on how to take your medicine on the prescription label you receive. Additional information may be provided by the Pharmacy. If you have questions afterwards, call the ED for clarification or further instructions. Some prescribed medications may cause drowsiness. Do not perform tasks such as driving a car or operating machinery without consulting your Pharmacist. If you feel you need a refill of pain medication, your condition will need re-evaluation. Please do not call for a refill of any medication. ABOUT YOUR SIGNATURE: Signature of this document acknowledges to followin. Understanding that you received emergency treatment and that you may be released before al medical problems are known or treated. Please be certain the ED has a correct phone number & address where you can be reached. 2. Acknowledgement that you will arrange for follow-up care as recommended. 3. Authorization for the Emergency Physician to provide information to your follow-up Physician in order to maximize your care. AT ANY TIME, IF YOUR SYMPTOMS CHANGE SIGNIFICANTLY OR WORSEN OR YOU DEVELOP NEW SYMPTOMS, RETURN TO THE EMERGENCY DEPARTMENT IMMEDIATELY FOR RE-EVALUATION. OUR GOAL IS TO PROVIDE EXCELLENT MEDICAL CARE! WE HOPE THAT WE HAVE MET YOUR EXPECTATIONS DURING YOUR EMERGENCY DEPARTMENT VISIT AND THAT YOU FEEL YOU HAVE RECEIVED EXCELLENT CARE! Referrals: CARLOS A PIERCE [employer] SET UP OPERATOR [employer]ICAL [Primary Care Provider] - Follow up as needed
[2020-07-26 02:18] VITALS: BP 142/85
== END 2020-07-26 01:30 | disposition home or self-care (01) ==
LOC: ER 14:19
DX: M54.2 Cervicalgia (principal); R07.89 Other chest pain; M79.18 Myalgia, other site; Z86.711 Personal history of pulmonary embolism; Z87.892 Personal history of anaphylaxis; Z88.0 Allergy status to penicillin
CPT/HCPCS: 93005; 99285; 96374; 96375; 36415; 82550; 83735; 85025; 80053; 84484; 85379; 71046; 93010; J1885; J1100